=== PATIENT | male | born 1985 | race Caucasian/White ===

== ENCOUNTER 2020-05-15 16:38 | Observation (INO) | payer SELFPAY ==
[~2020-05-15] VITALS: Ht 170.2 cm; Wt 78.1 kg
[2020-05-15 17:13] LABS: BASOPHILS # (AUTO) 0.1 10^3/uL (0.0-0.1); BASOPHILS % (AUTO) 0 % (0-10); EOSINOPHILS # (AUTO) 0.1 10^3/uL (0.0-0.3); EOSINOPHILS % (AUTO) 1 % (0-10); HEMATOCRIT 36 % (40-54); HEMOGLOBIN 12.6 G/DL (13.3-17.7); LYMPHOCYTES # (AUTO) 2.3 X 10^3 (1.0-4.0); LYMPHOCYTES % (AUTO) 20 % (12-44); MEAN CORPUSCULAR HEMOGLOBIN 33 PG (25-34); MEAN CORPUSCULAR HGB CONC 36 G/DL (32-36); MEAN CORPUSCULAR VOLUME 92 FL (80-99); MEAN PLATELET VOLUME 9.4 FL (7.4-10.4); MONOCYTES # (AUTO) 1.8 X 10^3 (0.0-1.0); MONOCYTES % (AUTO) 15 % (0-12); NEUTROPHILS # (AUTO) 7.4 X 10^3 (1.8-7.8); NEUTROPHILS % (AUTO) 63 % (42-75); PLATELET COUNT 255 10^3/uL (130-400); WHITE BLOOD COUNT 11.7 10^3/uL (4.3-11.0)
[2020-05-15 17:28] LABS: INR 1.9 (0.8-1.4)
[2020-05-15 17:36] LABS: ALANINE AMINOTRANSFERASE 15 U/L (0-55); ALBUMIN 2.5 GM/DL (3.2-4.5); ALKALINE PHOSPHATASE 94 U/L (40-136); AMYLASE 61 U/L (25-125); BILIRUBIN,TOTAL 4.8 MG/DL (0.1-1.0); BUN/CREATININE RATIO 6; CALCIUM 7.9 MG/DL (8.5-10.1); CARBON DIOXIDE 24 MMOL/L (21-32); CHLORIDE 96 MMOL/L (98-107); GFR ESTIMATED > 60; GLUCOSE 121 MG/DL (70-105); LIPASE 21 U/L (8-78); POTASSIUM 3.1 MMOL/L (3.6-5.0); SODIUM 128 MMOL/L (135-145); TOTAL PROTEIN 7.9 GM/DL (6.4-8.2)
--- NOTE | 2020-05-15 17:54 | Diagnostic Imaging Report ---
CLINICAL INDICATION: Patient with abdominal pain, distention, diarrhea x7 to 10 days. EXAM: Axial CT scan of the abdomen and pelvis performed without IV or enteric contrast. Coronal and sagittal reformatted images are created. COMPARISON: None. FINDINGS: There is parenchymal band seen involving both lung bases and basilar middle lobe and lingular regions. These findings may be related to atelectasis. Bones show no significant abnormality. There is a moderate to large amounts of ascites seen within the abdomen and pelvis. There is no gross evidence of peritoneal implants or definite intra-abdominal mass seen. There is small pericardial fluid noted. Intra-abdominal structures are not well delineated due to the ascites. There is no hepatomegaly or splenomegaly seen. The liver, spleen, pancreas, and adrenal glands are unremarkable as visualized. The gallbladder is not visualized and may be obscured by ascites. There is no surgical clips seen in the gallbladder fossa region. Both kidneys are unremarkable with no stones, mass, or hydronephrosis. The bladder is predominantly decompressed with very minimal flow within it. There is no gross abnormality of the bladder, as visualized. There is diffuse bowel wall thickening seen from the anus to the proximal sigmoid colon. There is also some bowel wall thickening in the region of the cecum. The appendix is obscured and not visualized and unable to be evaluated. The terminal ileum is fluid-filled with no gross abnormality. The intestines show no significant abnormality as visualized. Stomach is mildly distended, but otherwise unremarkable. Duodenum is decompressed. There are several mesenteric lymph nodes seen which are nonspecific. There is no other significant abdominal lymphadenopathy. There is no intra-abdominal free air. There is mild anasarca seen around the abdomen and pelvis region. IMPRESSION: 1: There is moderate to large amounts of abdominal ascites of unknown etiology. There are no gross evidence of peritoneal implants. 2: There is diffuse bowel wall thickening seen from the anus to the sigmoid colon. There is also bowel wall thickening of the cecum. Infectious or inflammatory colitis may be considered. 3: The appendix is not visualized and cannot be evaluated. 4: There is limited visualization of the intra-abdominal structures due to the amount of ascites. 5: Bibasilar atelectasis. Dictated by: Dictated on workstation # [id number]
[2020-05-15 18:04] LABS: CLARITY,URINE CLEAR; COLOR,URINE ORANGE; GLUCOSE, URINE (UA) NEGATIVE (NEGATIVE); KETONES,URINE TRACE (NEGATIVE); LEUKOCYTE ESTERASE ,URINE NEGATIVE (NEGATIVE); NITRITE,URINE NEGATIVE (NEGATIVE); PH,URINE 6.5 (5-9); PROTEIN,URINE TRACE (NEGATIVE)
[2020-05-15] MEDS ORDERED: NS IV 1000 ML 1,000 ML IV SCH (18:05)
[2020-05-15] MEDS ORDERED: KCL 10 MEQ TAB (MICRO K) PO STA (18:05)
[2020-05-15 18:07] LABS: BACTERIA,URINE TRACE /HPF; BILIRUBIN,URINE 2+ (NEGATIVE); HYALINE CASTS, URINE >50 /LPF; SQUAMOUS EPITHELIAL CELL,UR RARE /HPF
--- NOTE | 2020-05-15 18:10 | ED GI ---
General Chief Complaint: Abdominal/GI Problems Stated Complaint: ABD DISTENTION Nursing Triage Note: patient states last 7 days, abdomen getting worse, denies pain. Sepsis Screen: No Definite Risk History of Present Illness Date Seen by Provider: May 15, 2020 Time Seen by Provider: 17:15 Initial Comments 35 year old male presents for ascites, progressing over the last 7 days. No history of liver disease, reports drinking 3-4 alcoholic beverages (beer or whisky) until 3 months ago, when he quit. No previous abdominal surgeries. No primary care provider. Denies taking any medications. Mild nausea and diarrhea for 2-3 days. No travel. Denies jaundice, but scleral icterus noted. Timing/Duration: 6-7 Days Severity/Quality: Mild Associated Symptoms: No Back Pain, No Chest Pain, No Diaphoresis, No Heartburn; Nausea/Vomiting; No Shortness of Air; Swelling/Mass in Abdomen; No Weakness Allergies and Home Medications Allergies Coded Allergies: No Known Drug Allergies (Unverified , 05/15/20) Patient Home Medication List Home Medication List Reviewed: Yes Review of Systems Review of Systems Constitutional: no symptoms reported Gastrointestinal: See HPI, Abdomen Distended, Diarrhea, Nausea Skin: see HPI, change in color; No pruritus, No rash All Other Systems Reviewed Negative Unless Noted: Yes Past Pyreusg-Mcxjkl-Ibhrqn Hx Past Med/Social Hx: Reviewed Nursing Past Med/Soc Hx Patient Social History Alcohol Use: Past History Alcohol Beverage of Choice: Beer, Whiskey Recent Foreign Travel: No Contact w/Someone Who Travel: No Recent Infectious Disease Expo: No Physical Abuse: No Sexual Abuse: No Mistreated: No Fear: No Physical Exam Vital Signs Vital Signs - First Documented 05/15/20 17:08 Temp 36.9 Pulse 117 Resp 20 B/P (MAP) 139/99 (112) Pulse Ox 93 O2 Delivery Room Air Capillary Refill : Less Than 3 Seconds Height/Weight/BMI Height: '" Weight: lbs. oz. kg; 22.00 BMI Method: General Appearance: WD/WN, no apparent distress HEENT: normal ENT inspection, TMs normal, pharynx normal, scleral icterus (R), scleral icterus (L) Neck: non-tender, full range of motion, supple, normal inspection Respiratory: chest non-tender, lungs clear, normal breath sounds Cardiovascular: normal peripheral pulses, regular rate, rhythm, no edema, no murmur Gastrointestinal: normal bowel sounds, non tender, soft, distended; No guarding, No rebound, No tenderness, No mass Extremities: normal range of motion, non-tender, normal inspection, no pedal edema, normal capillary refill Neurologic/Psychiatric: no motor/sensory deficits, alert, normal mood/affect, oriented x 3 Skin: warm/dry, jaundice Progress/Results/Core Measures Results/Orders Lab Results Laboratory Tests Test 05/15/20 17:06 05/15/20 17:50 Range/Units White Blood Count 11.7 H 4.3-11.0 10^3/uL Red Blood Count 3.86 L 4.35-5.85 10^6/uL Hemoglobin 12.6 L 13.3-17.7 G/DL Hematocrit 36 L 40-54 % Mean Corpuscular Volume 92 80-99 FL Mean Corpuscular Hemoglobin 33 25-34 PG Mean Corpuscular Hemoglobin Concent 36 32-36 G/DL Red Cell Distribution Width 12.9 10.0-14.5 % Platelet Count 255 130-400 10^3/uL Mean Platelet Volume 9.4 7.4-10.4 FL Neutrophils (%) (Auto) 63 42-75 % Lymphocytes (%) (Auto) 20 12-44 % Monocytes (%) (Auto) 15 H 0-12 % Eosinophils (%) (Auto) 1 0-10 % Basophils (%) (Auto) 0 0-10 % Neutrophils # (Auto) 7.4 1.8-7.8 X 10^3 Lymphocytes # (Auto) 2.3 1.0-4.0 X 10^3 Monocytes # (Auto) 1.8 H 0.0-1.0 X 10^3 Eosinophils # (Auto) 0.1 0.0-0.3 10^3/uL Basophils # (Auto) 0.1 0.0-0.1 10^3/uL Prothrombin Time 22.0 H 12.2-14.7 SEC INR Comment 1.9 H 0.8-1.4 Activated Partial Thromboplast Time 43 H 24-35 SEC Sodium Level 128 L 135-145 MMOL/L Potassium Level 3.1 L 3.6-5.0 MMOL/L Chloride Level 96 L 98-107 MMOL/L Carbon Dioxide Level 24 21-32 MMOL/L Anion Gap 8 5-14 MMOL/L Blood Urea Nitrogen 4 L 7-18 MG/DL Creatinine 0.70 0.60-1.30 MG/DL Estimat Glomerular Filtration Rate > 60 BUN/Creatinine Ratio 6 Glucose Level 121 H 70-105 MG/DL Calcium Level 7.9 L 8.5-10.1 MG/DL Corrected Calcium 9.1 8.5-10.1 MG/DL Total Bilirubin 4.8 H 0.1-1.0 MG/DL Aspartate Amino Transf (AST/SGOT) 49 H 5-34 U/L Alanine Aminotransferase (ALT/SGPT) 15 0-55 U/L Alkaline Phosphatase 94 40-136 U/L C-Reactive Protein High Sensitivity 2.66 H 0.00-0.50 MG/DL Total Protein 7.9 6.4-8.2 GM/DL Albumin 2.5 L 3.2-4.5 GM/DL Amylase Level 61 25-125 U/L Lipase 21 8-78 U/L Urine Color ORANGE Urine Clarity CLEAR Urine pH 6.5 5-9 Urine Specific [place] 1.010 L 1.016-1.022 Urine Protein TRACE H NEGATIVE Urine Glucose (UA) NEGATIVE NEGATIVE Urine Ketones TRACE H NEGATIVE Urine Nitrite NEGATIVE NEGATIVE Urine Bilirubin 2+ H NEGATIVE Urine Urobilinogen 0.2 < = 1.0 MG/DL Urine Leukocyte Esterase NEGATIVE NEGATIVE Urine RBC (Auto) NEGATIVE NEGATIVE Urine RBC NONE /HPF Urine WBC 10-25 H /HPF Urine Squamous Epithelial Cells RARE /HPF Urine Crystals NONE /LPF Urine Bacteria TRACE /HPF Urine Casts PRESENT /LPF Urine Hyaline Casts >50 H /LPF Urine Mucus NEGATIVE /LPF Urine Culture Indicated YES My Orders Orders - HALEY ALONSO Amylase (05/15/20 16:44) Cbc With Automated Diff (05/15/20 16:44) Comprehensive Metabolic Panel (05/15/20 16:44) Hs C Reactive Protein (05/15/20 16:44) Lipase (05/15/20 16:44) Protime With Inr (05/15/20 16:44) Partial Thromboplastin Time (05/15/20 16:44) Ua Culture If Indicated (05/15/20 16:44) Ct Abdomen/Pelvis Wo (05/15/20 16:44) Ed Iv/Invasive Line Start (05/15/20 18:05) Ns Iv 1000 Ml (Sodium Chloride 0.9%) (05/15/20 18:05) Potassium Chloride (Tablet) (Klor Con Ta (05/15/20 18:05) Urine Culture (05/15/20 17:50) Vital Signs/I&O 05/15/20 17:08 Temp 36.9 Pulse 117 Resp 20 B/P (MAP) 139/99 (112) Pulse Ox 93 O2 Delivery Room Air Blood Pressure Mean: 112 Progress Progress Note : Time: 17:15 Progress Note Patient seen and evaluated, will obtain labs and CT of the abdomen and pelvis. 1800 normal saline 1 L per IV. Will give potassium [address] and labs, discussed with Dr. Liu and Dr. Scott. Agreed to admit with plan for paracentesis tomorrow. Will repeat labs in the morning. Rocephin 2 g IV. 1845 plans discussed with the patient, he is agreeable. Diagnostic Imaging Diagonstic Imaging: CT Plain Films/CT/US/NM/MRI: abdomen, pelvis Comments CLINICAL INDICATION: Patient with abdominal pain, distention, diarrhea x7 to 10 days. EXAM: Axial CT scan of the abdomen and pelvis performed without IV or enteric contrast. Coronal and sagittal reformatted images are created. COMPARISON: None. FINDINGS: There is parenchymal band seen involving both lung bases and basilar middle lobe and lingular regions. These findings may be related to atelectasis. Bones show no significant abnormality. There is a moderate to large amounts of ascites seen within the abdomen and pelvis. There is no gross evidence of peritoneal implants or definite intra-abdominal mass seen. There is small pericardial fluid noted. Intra-abdominal structures are not well delineated due to the ascites. There is no hepatomegaly or splenomegaly seen. The liver, spleen, pancreas, and adrenal glands are unremarkable as visualized. The gallbladder is not visualized and may be obscured by ascites. There is no surgical clips seen in the gallbladder fossa region. Both kidneys are unremarkable with no stones, mass, or hydronephrosis. The bladder is predominantly decompressed with very minimal flow within it. There is no gross abnormality of the bladder, as visualized. There is diffuse bowel wall thickening seen from the anus to the proximal sigmoid colon. There is also some bowel wall thickening in the region of the cecum. The appendix is obscured and not visualized and unable to be evaluated. The terminal ileum is fluid-filled with no gross abnormality. The intestines show no significant abnormality as visualized. Stomach is mildly distended, but otherwise unremarkable. Duodenum is decompressed. There are several mesenteric lymph nodes seen which are nonspecific. There is no other significant abdominal lymphadenopathy. There is no intra-abdominal free air. There is mild anasarca seen around the abdomen and pelvis region. IMPRESSION: 1: There is moderate to large amounts of abdominal ascites of unknown etiology. There are no gross evidence of peritoneal implants. 2: There is diffuse bowel wall thickening seen from the anus to the sigmoid colon. There is also bowel wall thickening of the cecum. Infectious or inflammatory colitis may be considered. 3: The appendix is not visualized and cannot be evaluated. 4: There is limited visualization of the intra-abdominal structures due to the amount of ascites. 5: Bibasilar atelectasis. Dictated on workstation # [id number] Dict: 05/15/20 1739 Trans: 05/15/20 1753 [facility] [id number] Interpreted by: KARIE CRUZ MD Electronically signed by: Reviewed: Reviewed by Me Departure Impression Primary Impression: Ascites Qualified Codes: R18.8 - Other ascites Additional Impressions: Abdominal distention Colitis Jaundice Disposition: ADMITTED INPATIENT Condition: Stable Admissions Decision to Admit Reason: Admit from ER (General) Decision to Admit/Date: May 15, 2020 Time/Decision to Admit Time: 18:30 Departure-Patient Inst. Referrals: NO,LOCAL PHYSICIAN (PCP) Primary Care Physician CATHY TIPTON DO (Family) Primary Care Physician Copy Copies To 1: MICAH LIU AMY ARNP May 15, 2020 18:10
--- NOTE | 2020-05-15 20:05 | NUR ---
LINDA CALL admitted to room 413-1, with an admitting diagnosis of ABDOMINAL PAIN, ASCITES, AND JAUNDICE, on 05/15/20 from ED via WHEELCHAIR, accompanied by STAFF. LINDA CALL introduced to surroundings, call light, bed controls, phone, TV, temperature control, lights, meal times, smoking policy, visitor policy, side rail policy, bathrooms and showers. Patient Rights given to patient in the handbook. LINDA CALL verbalizes understanding that [facility] is not responsible for the loss or damage to any personal effects or valuables that are kept in the patients posession during their hospitalization. LINDA CALL verbalizes understanding of Interdisciplinary Patient Education. Patient and/or family were informed about the Rapid Response Team and its purpose.
[2020-05-15] MEDS ORDERED: cefTRIAXone 2,000 MG/SWFI 20 ML IV PUSH IV SCH ×2 (20:19)
[2020-05-15] MEDS ORDERED: fentaNYL INJECTION 100 MCG/2 ML AMP IV PRN (20:30)
[2020-05-15] MEDS ORDERED: ONDANSETRON 4 MG/2 ML (SDV) Z0FRAN IV PRN (20:30)
[2020-05-15] MEDS ORDERED: ACETAMINOPHEN 325 MG TABLET PO PRN (20:30)
[2020-05-15] MEDS ORDERED: CATHETER FLUSH 10 ML SYR IV PRN (20:30)
[2020-05-15] MEDS: NS IV 1000 ML 1,000 ML IV SCH (20:37)
[2020-05-15 21:42] VITALS: BP 133/85
--- NOTE | 2020-05-15 23:25 | NUR ---
DR. LIU IN TO SEE PT.
--- NOTE | 2020-05-15 23:37 | Consultation - Surgery ---
History of Present Illness History of Present Illness Patient Consulted On(sara/time) 05/15/20 23:31 Date Seen by Provider: May 15, 2020 Time Seen by Provider: 23:31 History of Present Illness Consult requested by Dr. Scott for ascites, colitis Patient is a 35 year old male who over last 7 days had increasing abdominal distention. No significant pain. Continued to increase in size and began having some nausea. Nothing makes better. Nothing he k nows of makes worse. Having some diarrhea last couple days. Reported history of drinking 3-4 drinks per day but stopped. Uses an tobacco. Denies any other complaints. Denies fever sweats chills shortness of breath or emesis. CT abd/pelvis: 1: There is moderate to large amounts of abdominal ascites of unknown etiology. There are no gross evidence of peritoneal implants. 2: There is diffuse bowel wall thickening seen from the anus to the sigmoid colon. There is also bowel wall thickening of the cecum. Infectious or inflammatory colitis may be considered. 3: The appendix is not visualized and cannot be evaluated. 4: There is limited visualization of the intra-abdominal structures due to the amount of ascites. 5: Bibasilar atelectasis. Allergies and Home Medications Allergies Coded Allergies: No Known Drug Allergies (Unverified , 05/15/20) Patient Home Medication List Home Medication List Reviewed: Yes Past Owzsrzc-Ehdhkz-Jfkjfb Hx Patient Social History Alcohol Use: Past History Type Used: Smokeless Tobacco Recent Foreign Travel: No Contact w/Someone Who Travel: No Recent Infectious Disease Expo: No Immunizations Up To Date Date of Pneumonia Vaccine: Apr 25, 2014 Surgeries History of Surgeries: Yes Surgeries: Appendectomy Respiratory History of Respiratory Disorde: No Cardiovascular History of Cardiac Disorders: No Neurological History of Neurological Disord: No Genitourinary History of Genitourinary Disor: No Gastrointestinal History of Gastrointestinal Di: No Musculoskeletal History of Musculoskeletal Dis: No Endocrine History of Endocrine Disorders: No HEENT History of HEENT Disorders: No Cancer History of Cancer: No Psychosocial History of Psychiatric Problem: No Integumentary History of Skin or Integumenta: No Blood Transfusions History of Blood Disorders: No Family Medical History Significant Family History: No Pertinent Family Hx Review of Systems-General Constitutional: No chills, No fever, No weakness EENTM: No blurred vision, No double vision Respiratory: No cough, No dyspnea on exertion Cardiovascular: No chest pain, No edema Gastrointestinal: jaundice, nausea; No vomiting; other (distention) Genitourinary: No decreased output, No discharge Musculoskeletal: No back pain, No joint pain Skin: change in color Psychiatric/Neurological: Denies Anxiety, Denies Depressed All Other Systems Reviewed Negative Unless Noted: Yes (Negative excepted noted.) Physical Exam-General Problems Physical Exam Vital Signs Vital Signs - First Documented 05/15/20 17:08 Temp 36.9 Pulse 117 Resp 20 B/P (MAP) 139/99 (112) Pulse Ox 93 O2 Delivery Room Air Capillary Refill : Less Than 3 Seconds General Appearance: WD/WN, no apparent distress HEENT: PERRL/EOMI, scleral icterus (R), scleral icterus (L) Neck: non-tender, supple Respiratory: chest non-tender, no respiratory distress, no accessory muscle use Cardiovascular: regular rate, rhythm, no edema Gastrointestinal: distended; No guarding, No tenderness Rectal: deferred Back: no CVA tenderness, no vertebral tenderness Extremities: non-tender, normal inspection Neurologic/Psychiatric: alert, normal mood/affect, oriented x 3 Skin: warm/dry, jaundice Lymphatic: no adenopathy Data Review Labs Laboratory Tests 05/15/20 17:06: White Blood Count 11.7H, Red Blood Count 3.86L, Hemoglobin 12.6L, Hematocrit 36L , Mean Corpuscular Volume 92, Mean Corpuscular Hemoglobin 33, Mean Corpuscular Hemoglobin Concent 36, Red Cell Distribution Width 12.9, Platelet Count 255, Mean Platelet Volume 9.4, Neutrophils (%) (Auto) 63, Lymphocytes (%) (Auto) 20, Monocytes (%) (Auto) 15H, Eosinophils (%) (Auto) 1, Basophils (%) (Auto) 0, Neutrophils # (Auto) 7.4, Lymphocytes # (Auto) 2.3, Monocytes # (Auto) 1.8H, Eosinophils # (Auto) 0.1, Basophils # (Auto) 0.1, Prothrombin Time 22.0H, INR Comment 1.9H, Activated Partial Thromboplast Time 43H, Sodium Level 128L, Potassium Level 3.1L, Chloride Level 96L, Carbon Dioxide Level 24, Anion Gap 8, Blood Urea Nitrogen 4L, Creatinine 0.70, Estimat Glomerular Filtration Rate > 60, BUN/Creatinine Ratio 6, Glucose Level 121H, Calcium Level 7.9L, Corrected Calcium 9.1, Total Bilirubin 4.8H, Direct Bilirubin 2.0H, Aspartate Amino Transf (AST/SGOT) 49H, Alanine Aminotransferase (ALT/SGPT) 15, Alkaline Phosphatase 94, C-Reactive Protein High Sensitivity 2.66H, Total Protein 7.9, Albumin 2.5L, Amylase Level 61, Lipase 21, Serum Alcohol < 10 05/15/20 17:50: Urine Color ORANGE, Urine Clarity CLEAR, Urine pH 6.5, Urine Specific [place] 1.010L, Urine Protein TRACEH, Urine Glucose (UA) NEGATIVE, Urine Ketones TRACEH, Urine Nitrite NEGATIVE, Urine Bilirubin 2+H, Urine Urobilinogen 0.2, Urine Leukocyte Esterase NEGATIVE, Urine RBC (Auto) NEGATIVE, Urine RBC NONE, Urine WBC 10-25H, Urine Squamous Epithelial Cells RARE, Urine Crystals NONE, Urine Bacteria TRACE, Urine Casts PRESENT, Urine Hyaline Casts >50H, Urine Mucus NEGATIVE, Urine Culture Indicated YES Assessment/Plan Assessment/Plan Assessment/Plan symptomatic ascites jaundice colitis Patient with ct that shows some thickening of the sigmoid/rectal distribution. On abx Large volume ascites which we will plan on draining likely tomorrow. Will recheck labs. Patient discussed and understands plan. will follow Clinical Quality Measures DVT/VTE Risk/Contraindication: Risk Factor Score Per Nursin RFS Level Per Nursing on Admit: 1=Low/No VTE PPX MICAH LIU DO May 15, 2020 23:37
[2020-05-16] VITALS (9 sets, daily range): BP systolic 110–138; BP diastolic 70–85
[2020-05-16] MEDS: NS IV 1000 ML 1,000 ML IV SCH ×2 (03:36→17:11)
[2020-05-16 06:24] LABS: BASOPHILS % (AUTO) 0 % (0-10); EOSINOPHILS # (AUTO) 0.1 10^3/uL (0.0-0.3); EOSINOPHILS % (AUTO) 1 % (0-10); HEMATOCRIT 32 % (40-54); HEMOGLOBIN 11.5 G/DL (13.3-17.7); LYMPHOCYTES # (AUTO) 2.2 X 10^3 (1.0-4.0); LYMPHOCYTES % (AUTO) 20 % (12-44); MEAN CORPUSCULAR HEMOGLOBIN 33 PG (25-34); MEAN CORPUSCULAR HGB CONC 36 G/DL (32-36); MEAN CORPUSCULAR VOLUME 92 FL (80-99); MEAN PLATELET VOLUME 9.8 FL (7.4-10.4); MONOCYTES # (AUTO) 1.4 X 10^3 (0.0-1.0); MONOCYTES % (AUTO) 12 % (0-12); NEUTROPHILS # (AUTO) 7.6 X 10^3 (1.8-7.8); NEUTROPHILS % (AUTO) 67 % (42-75); PLATELET COUNT 227 10^3/uL (130-400); WHITE BLOOD COUNT 11.4 10^3/uL (4.3-11.0)
[2020-05-16 06:34] LABS: INR 1.9 (0.8-1.4); PROTHROMBIN TIME PATIENT 22.4 SEC (12.2-14.7)
[2020-05-16 06:48] LABS: ALANINE AMINOTRANSFERASE 14 U/L (0-55); ALBUMIN 2.2 GM/DL (3.2-4.5); ALKALINE PHOSPHATASE 81 U/L (40-136); BILIRUBIN,TOTAL 2.6 MG/DL (0.1-1.0); BUN/CREATININE RATIO 5; CALCIUM 7.5 MG/DL (8.5-10.1); CARBON DIOXIDE 24 MMOL/L (21-32); CHLORIDE 101 MMOL/L (98-107); CREATININE SERUM 0.65 MG/DL (0.60-1.30); GFR ESTIMATED > 60; GLUCOSE 94 MG/DL (70-105); POTASSIUM 2.9 MMOL/L (3.6-5.0); SODIUM 132 MMOL/L (135-145); TOTAL PROTEIN 6.8 GM/DL (6.4-8.2)
--- NOTE | 2020-05-16 07:53 | Progress Note - Surgery ---
REUBEN LEVIN MED STUDENT 05/16/20 0753: Subjective Date Seen by a Provider: May 16, 2020 Time Seen by a Provider: 07:25 Subjective/Events-last exam Pt appeared comfortable and sitting up in bed. Reports he is feeling better than yesterday. Abdomen still distended. Claims to be passing gas and experiencing normal bowel function. Denies nausea, vomiting, fever, chills, sob, chest pain, dysphagia. Objective Exam Vital Signs Date Time Temp Pulse Resp B/P (MAP) Pulse Ox O2 Delivery O2 Flow Rate FiO2 05/16/20 04:00 37.1 103 18 125/83 (97) 95 Room Air 05/16/20 00:00 37.5 110 18 124/75 (91) 95 Room Air 05/15/20 21:42 36.5 107 20 133/85 93 Room Air 05/15/20 20:05 Room Air 05/15/20 20:03 110 18 141/97 95 Room Air 05/15/20 17:08 36.9 117 20 139/99 (112) 93 Room Air I & O 05/16/20 07:00 Intake Total 2870 ml Balance 2870 ml Capillary Refill : Less Than 3 Seconds General Appearance: No Apparent Distress, Chronically ill HEENT: PERRL/EOMI, Normal ENT Inspection Neck: Full Range of Motion, Normal Inspection, Non Tender, Supple Respiratory: Chest Non Tender, No Accessory Muscle Use, No Respiratory Distress Cardiovascular: Regular Rate, Rhythm, No JVD Gastrointestinal: non tender, distended; No guarding, No tenderness Extremity: Normal Inspection, Non Tender Neurologic/Psychiatric: Alert, Oriented x3, No Motor/Sensory Deficits, Normal Mood/Affect Skin: Normal Color, Warm/Dry Results Lab Laboratory Tests 05/15/20 17:06: White Blood Count 11.7H, Red Blood Count 3.86L, Hemoglobin 12.6L, Hematocrit 36L , Mean Corpuscular Volume 92, Mean Corpuscular Hemoglobin 33, Mean Corpuscular Hemoglobin Concent 36, Red Cell Distribution Width 12.9, Platelet Count 255, Mean Platelet Volume 9.4, Neutrophils (%) (Auto) 63, Lymphocytes (%) (Auto) 20, Monocytes (%) (Auto) 15H, Eosinophils (%) (Auto) 1, Basophils (%) (Auto) 0, Neutrophils # (Auto) 7.4, Lymphocytes # (Auto) 2.3, Monocytes # (Auto) 1.8H, Eosinophils # (Auto) 0.1, Basophils # (Auto) 0.1, Prothrombin Time 22.0H, INR Comment 1.9H, Activated Partial Thromboplast Time 43H, Sodium Level 128L, Potassium Level 3.1L, Chloride Level 96L, Carbon Dioxide Level 24, Anion Gap 8, Blood Urea Nitrogen 4L, Creatinine 0.70, Estimat Glomerular Filtration Rate > 60, BUN/Creatinine Ratio 6, Glucose Level 121H, Calcium Level 7.9L, Corrected Calcium 9.1, Total Bilirubin 4.8H, Direct Bilirubin 2.0H, Aspartate Amino Transf (AST/SGOT) 49H, Alanine Aminotransferase (ALT/SGPT) 15, Alkaline Phosphatase 94, C-Reactive Protein High Sensitivity 2.66H, Total Protein 7.9, Albumin 2.5L, Amylase Level 61, Lipase 21, Serum Alcohol < 10 05/15/20 17:50: Urine Color ORANGE, Urine Clarity CLEAR, Urine pH 6.5, Urine Specific [place] 1.010L, Urine Protein TRACEH, Urine Glucose (UA) NEGATIVE, Urine Ketones TRACEH, Urine Nitrite NEGATIVE, Urine Bilirubin 2+H, Urine Urobilinogen 0.2, Urine Leukocyte Esterase NEGATIVE, Urine RBC (Auto) NEGATIVE, Urine RBC NONE, Urine WBC 10-25H, Urine Squamous Epithelial Cells RARE, Urine Crystals NONE, Urine Bacteria TRACE, Urine Casts PRESENT, Urine Hyaline Casts >50H, Urine Mucus NEGATIVE, Urine Culture Indicated YES 05/16/20 05:55: White Blood Count 11.4H, Red Blood Count 3.51L, Hemoglobin 11.5L, Hematocrit 32L , Mean Corpuscular Volume 92, Mean Corpuscular Hemoglobin 33, Mean Corpuscular Hemoglobin Concent 36, Red Cell Distribution Width 13.0, Platelet Count 227, Mean Platelet Volume 9.8, Neutrophils (%) (Auto) 67, Lymphocytes (%) (Auto) 20, Monocytes (%) (Auto) 12, Eosinophils (%) (Auto) 1, Basophils (%) (Auto) 0, Neutrophils # (Auto) 7.6, Lymphocytes # (Auto) 2.2, Monocytes # (Auto) 1.4H, Eosinophils # (Auto) 0.1, Basophils # (Auto) 0.0, Prothrombin Time 22.4H, INR Comment 1.9H, Sodium Level 132L, Potassium Level 2.9L, Chloride Level 101, Carbon Dioxide Level 24, Anion Gap 7, Blood Urea Nitrogen 3L, Creatinine 0.65, Estimat Glomerular Filtration Rate > 60, BUN/Creatinine Ratio 5, Glucose Level 94, Calcium Level 7.5L, Corrected Calcium 8.9, Total Bilirubin 2.6#H, Aspartate Amino Transf (AST/SGOT) 46H, Alanine Aminotransferase (ALT/SGPT) 14, Alkaline Phosphatase 81, Total Protein 6.8, Albumin 2.2L Assessment/Plan Assessment/Plan Assessment/Plan symptomatic ascites jaundice colitis continue abx drain ascites today repeat CT Clinical Quality Measures DVT/VTE Risk/Contraindication: Risk Factor Score Per Nursin RFS Level Per Nursing on Admit: 1=Low/No VTE PPX MICAH COBB DO 05/16/20 1646: Subjective Subjective/Events-last exam Abdomen very distended still. Some discomfort due to distention but no significant pain. Has bowel function. Denies n/v fever sweats chills shortness of breath or chest pain. Objective Exam General Appearance: No Apparent Distress, Chronically ill HEENT: PERRL/EOMI, Normal ENT Inspection, Scleral Icterus (L), Scleral Icterus (R) Neck: Non Tender, Supple Respiratory: Chest Non Tender, No Accessory Muscle Use, No Respiratory Distress Cardiovascular: Regular Rate, Rhythm, No Edema, No JVD Gastrointestinal: non tender (but pressure), distended; No guarding, No rebound; other Extremity: Normal Inspection, Non Tender Neurologic/Psychiatric: Alert, Oriented x3 Skin: Normal Color, Warm/Dry, Jaundice Lymphatic: No Adenopathy Assessment/Plan Assessment/Plan Assessment/Plan symptomatic ascites jaundice colitis patient inr still slightly elevated will plan ffp to lower then paracentesis u/s guided he understands risks and benefits of paracentesis and wishes to proceed obtain consent will need f/u with GI Supervisory-Addendum Brief Verification & Attestation Participated in pt care: history, MDM, physical Personally performed: exam, history, MDM, supervision of care Care discussed with: Medical Student Procedures: n/a Results interpretation: Verified all documentation Verification and Attestation of Medical Student E/M Service A medical student performed and documented this service in my presence. I reviewed and verified all information documented by the medical student and made modifications to such information, when appropriate. I personally performed the physical exam and medical decision making. Micah Cobb, May 16, 2020,16:46 REUBEN LEVIN MED STUDENT May 16, 2020 07:53 MICAH COBB DO May 16, 2020 16:46
[2020-05-16] MEDS ORDERED: ALBUMIN 25% 25 GM/100 ML 100 ML IV SCH (08:00)
[2020-05-16] MEDS ORDERED: KCL 20 MEQ TAB (K-DUR) PO ONE ×3 (09:00→11:45)
[2020-05-16] MEDS ORDERED: FUROSEMIDE 20 MG (LASIX) TAB PO SCH (09:00)
[2020-05-16] MEDS ORDERED: SPIRONOLACTONE 25 MG (ALDACTONE) TAB PO SCH (09:00)
[2020-05-16] MEDS ORDERED: NS IV 500 ML 500 ML IV SCH (10:45)
[2020-05-16] MEDS ORDERED: NS IV 500 ML 500 ML ONE (12:48)
--- NOTE | 2020-05-16 13:28 | NUR ---
fresh frozen plasma infusing at this time. 1305 this RN received plasma from hazardous materials waste technician and verified 1310 this RN attempted to scan plasma product code. product code would not allow this RN to scan at this time. semiconductor testing group leader notified and instructed this RN to contact blood bank. blood bank contacted and instructed this RN to bring product back to lab to reverify. [id number] product reverified with blood bank[facility] the product code should not have to be scanned. this RN stated we always scan the product bar code on the floor. blood bank verified product code in the computer and of frozen products in the freezer currently. all codes match current sample issued to this RN. this RN was instructed by blood bank to override product verification in the computer and have a second RN reverify on the floor. 1328 PLASMA STATED AT THIS TIME WITH TORRES JIMENEZ
--- NOTE | 2020-05-16 17:24 | NUR ---
6,800ML total emptied from Paracentesis drain. fluid labeled and sent to lab at this time. notified of total fluid emptied. patient to DC this evening when Albumin is finished infusing
[2020-05-16] MEDS ORDERED: ALBUMIN 25% 25 GM/100 ML 100 ML IV ONE ×2 (17:45→18:34)
--- NOTE | 2020-05-16 17:45 | NUR ---
2nd bag of Albumin 25% ordered at this time by Dr. Scott. Patient okay to DC when albumin is finished infusing
--- NOTE | 2020-05-16 17:49 | Discharge Summary ---
Discharge Summary Hospital Course Problems/Dx: (1) Ascites Status: Acute Hospital Course Date of Admission: May 15, 2020 at 18:45 Admission Diagnosis : Ascites Family Physician/Provider: Eren Leone DO Date of Discharge: 05/16/20 Discharge Diagnosis: Ascites Hospital Course: Lynn Anderson is a 35 year old male who presented with abdominal distension and was admitted with ascites. He underwent a paracentesis and peritoneal fluid studies were pending at the time of discharge. He had 6800 mL of peritoneal fluid removed. He remained hemodynamically stable and afebrile with no signs of acute infection. He was set up with an appointment at [facility] to establish care with a primary care physician. He is uninsured and will likely need a referral to a cafeteria director. Labs and Pending Lab Test: Laboratory Tests 05/15/20 17:50: Urine Color ORANGE, Urine Clarity CLEAR, Urine pH 6.5, Urine Specific [place] 1.010L, Urine Protein TRACEH, Urine Glucose (UA) NEGATIVE, Urine Ketones TRACEH, Urine Nitrite NEGATIVE, Urine Bilirubin 2+H, Urine Urobilinogen 0.2, Urine Leukocyte Esterase NEGATIVE, Urine RBC (Auto) NEGATIVE, Urine RBC NONE, Urine WBC 10-25H, Urine Squamous Epithelial Cells RARE, Urine Crystals NONE, Urine Bacteria TRACE, Urine Casts PRESENT, Urine Hyaline Casts >50H, Urine Mucus NEGATIVE, Urine Culture Indicated YES 05/16/20 05:55: White Blood Count 11.4H, Red Blood Count 3.51L, Hemoglobin 11.5L, Hematocrit 32L , Mean Corpuscular Volume 92, Mean Corpuscular Hemoglobin 33, Mean Corpuscular Hemoglobin Concent 36, Red Cell Distribution Width 13.0, Platelet Count 227, Mean Platelet Volume 9.8, Neutrophils (%) (Auto) 67, Lymphocytes (%) (Auto) 20, Monocytes (%) (Auto) 12, Eosinophils (%) (Auto) 1, Basophils (%) (Auto) 0, Neutrophils # (Auto) 7.6, Lymphocytes # (Auto) 2.2, Monocytes # (Auto) 1.4H, Eosinophils # (Auto) 0.1, Basophils # (Auto) 0.0, Prothrombin Time 22.4H, INR Comment 1.9H, Sodium Level 132L, Potassium Level 2.9L, Chloride Level 101, Carbon Dioxide Level 24, Anion Gap 7, Blood Urea Nitrogen 3L, Creatinine 0.65, Estimat Glomerular Filtration Rate > 60, BUN/Creatinine Ratio 5, Glucose Level 94, Calcium Level 7.5L, Corrected Calcium 8.9, Magnesium Level 1.7, Total Bilirubin 2.6#H, Aspartate Amino Transf (AST/SGOT) 46H, Alanine Aminotransferase (ALT/SGPT) 14, Alkaline Phosphatase 81, Total Protein 6.8, Albumin 2.2L 05/16/20 10:54: Lactate Dehydrogenase 267H 05/16/20 15:35: Body Fluid Source [Pending], Body Fluid Color [Pending], Body Fluid Appearance [Pending], Body Fluid WBC [Pending], Body Fluid RBC [Pending], Body Fluid Polynuclear WBCs [Pending], Body Fluid Mononuclear WBCs [Pending], Body Fluid Lymphocytes [Pending], Body Fluid Other Cells [Pending], Body Fluid Glucose [Pending], Body Fluid Total Protein [Pending], Body Fluid Albumin [Pending], Body Fluid Lactate Dehydrogenase [Pending], Body Fluid Amylase [Pending] 05/16/20 15:55: Potassium Level 3.4L Assessment/Pt Instructions Establish care with a primary care physician. You have an appointment scheduled at [facility]. Return with worsening abdominal distension, difficulty breathing, abdominal pain, or fevers. Discharge Planning: <30 minutes discharge planning Discharge Instructions Discharge Diet: Low Sodium Diet Activity as Tolerated: Yes Discharge Physical Examination Vital Signs Vital Signs Date Time Temp Pulse Resp B/P (MAP) Pulse Ox O2 Delivery O2 Flow Rate FiO2 05/16/20 16:11 37.0 98 118/73 93 05/16/20 16:00 20 Room Air General Appearance: No Apparent Distress, WD/WN HEENT: Pharynx Normal, Scleral Icterus (L), Scleral Icterus (R) Respiratory: Lungs Clear, Normal Breath Sounds, No Respiratory Distress Cardiovascular: Regular Rate, Rhythm, No Murmur Gastrointestinal: Normal Bowel Sounds, Distended, Other (firm) Extremity: Normal Inspection, Non Tender, Pedal Edema Skin: Warm/Dry, Jaundice Neurologic/Psychiatric: Alert, Oriented x3, No Motor/Sensory Deficits, Normal Mood/Affect Allergies: Coded Allergies: No Known Drug Allergies (Unverified , 05/15/20) Copy Copies To 1: [facility] Discharge Summary Date of Admission May 15, 2020 at 18:45 Date of Discharge Discharge Date: May 16, 2020 Discharge Time: 17:47 Admission Diagnosis Ascites Consults/Procedures Consulations General surgery Procedures Paracentesis Discharge Diagnosis (1) Ascites Status: Acute Clinical Quality Measures DVT/VTE Risk/Contraindication: Risk Factor Score Per Nursin RFS Level Per Nursing on Admit: 1=Low/No VTE PPX TOY ANTHONY MD May 16, 2020 17:47
[2020-05-16 18:48] LABS: ALBUMIN,BODY FLUID 0.4 G/DL; GLUCOSE,BODY FLUID 118 MG/DL; LDH,BODY FLUID 66 U/L; TOTAL PROTEIN,BODY FLUID 1.1 G/DL
[2020-05-16 18:49] LABS: AMYLASE,BODY FLUID 15 U/L
[2020-05-16 19:35] LABS: BODY FLUID APPEARENCE SLT CLDY; BODY FLUID COLOR YELLOW; BODY FLUID SOURCE PERITON
[2020-05-16 19:36] LABS: BF OTHER CELLS 1 %; BODY FLUID RBC COUNT 32 /uL; BODY FLUID WBC TOTAL COUNT 379 /uL; LYMPHOCYTES,BODY FLUID 82 %
--- NOTE | 2020-05-16 21:21 | NUR ---
2nd bag of Albumin done. Explained discharge packet to patient including followup to [facility] and Dr. Cobb's clinic. Pt understood. Pt discharged left the floor at 2114 accompanied by staff.
--- NOTE | 2020-05-16 22:04 | OPERATIVE REPORT ---
DATE OF SERVICE: 05/16/2020 PREOPERATIVE DIAGNOSIS: Symptomatic ascites. POSTOPERATIVE DIAGNOSIS: Symptomatic ascites. PROCEDURE: Ultrasound-guided paracentesis. SURGEON: Micah Cobb DO ANESTHESIA: A 1% lidocaine 3 mL. ESTIMATED BLOOD LOSS: None. COMPLICATIONS: None. INDICATIONS: The patient is a 35-year-old male with symptomatic ascites. He understands risks and benefits of procedure and wished to proceed with procedure. Consent was signed in the chart. DESCRIPTION OF PROCEDURE: The patient was laid in the supine position. Timeout was performed. Ultrasound was used to isolate the largest fluid pocket. The area was then prepped and draped in a sterile fashion. Local anesthetic was infiltrated and 11 blade scalpel was used to make a small skin incision and the [id number] needle and catheter were then advanced through the abdominal wall until straw colored fluid was returned and the catheter was inserted and the needle was removed. A total of 6800 mL of fluid was withdrawn from the abdomen. Once completed, the catheter was removed and sterile bandage was applied. The patient tolerated procedure well without any complications. Job ID: [id number] DocumentID: [id number] Dictated Date: 05/16/2020 17:11:17 Filenet Developer Date: 05/16/2020 22:03:36 Dictated By: MICAH COBB DO [facility] HOSPITALDorinda
[2020-05-17] MEDS ORDERED: POTASSIUM CL 10MEQ/50ML IVPB 50 ML IV SCH (06:00)
[2020-05-17] MEDS ORDERED: KCL 20 MEQ TAB (K-DUR) PO SCH (06:00)
[2020-05-17] MEDS ORDERED: MAGNESIUM 1 GM/100 ML IVPB 100 ML IV SCH (06:00)
== END 2020-05-16 21:15 | disposition home or self-care (01) ==
LOC: ER 16:40 → 4TH 18:45 → UNDOADMOB 18:45 → 4TH 20:05 → UNDODISOB 05-16 21:15
PROVIDERS: ADMIT Internal Medicine; ATTEND Internal Medicine
DX: R18.8 Other ascites (principal); R14.0 Abdominal distension (gaseous); K52.9 Noninfective gastroenteritis and colitis, unspecified; R17 Unspecified jaundice
CPT/HCPCS: 74176; 80053 ×2; 81000; 82042; 82150 ×2; 82248; 82945; 83615 ×2; 83690; 83735; 84132; 84157; 85025 ×2; 85610 ×2; 85730; 86141; 86900; 86901; 87070; 87081; 87088; 87205; 88112; 88305; 89051; 96360; 99284; G0378; G0480; P9017; 36415; 80320

== ENCOUNTER 2022-04-28 18:43 | Inpatient (IN) | payer SELFPAY ==
[~2022-04-28] VITALS: Ht 170 cm; Wt 79.9 kg
[2022-04-28 20:56] LABS: CLARITY,URINE CLEAR; COLOR,URINE YELLOW; GLUCOSE, URINE (UA) NEGATIVE (NEGATIVE); KETONES,URINE 2+ (NEGATIVE); LEUKOCYTE ESTERASE ,URINE TRACE (NEGATIVE); NITRITE,URINE POSITIVE (NEGATIVE); PROTEIN,URINE 2+ (NEGATIVE)
[2022-04-28 20:58] LABS: MEAN CORPUSCULAR VOLUME 94 fL (80-99)
[2022-04-28 21:00] LABS: BASOPHILS # (AUTO) 0.1 10^3/uL (0.0-0.1); BASOPHILS % (AUTO) 1 % (0-10); EOSINOPHILS % (AUTO) 0 % (0-10); HEMATOCRIT 31 % (40-54); HEMOGLOBIN 10.8 g/dL (13.3-17.7); LYMPHOCYTES # (AUTO) 1.7 10^3/uL (1.0-4.0); LYMPHOCYTES % (AUTO) 17 % (12-44); MEAN CORPUSCULAR HEMOGLOBIN 33 pg (25-34); MEAN CORPUSCULAR HGB CONC 35 g/dL (32-36); MEAN PLATELET VOLUME 10.9 fL (9.0-12.2); MONOCYTES # (AUTO) 2.1 10^3/uL (0.0-1.0); MONOCYTES % (AUTO) 20 % (0-12); NEUTROPHILS # (AUTO) 6.3 10^3/uL (1.8-7.8); NEUTROPHILS % (AUTO) 61 % (42-75); PLATELET COUNT 130 10^3/uL (130-400); WHITE BLOOD COUNT 10.2 10^3/uL (4.3-11.0)
[2022-04-28 21:04] LABS: BACTERIA,URINE MODERATE /HPF; BILIRUBIN,URINE 3+ (NEGATIVE)
[2022-04-28 21:12] LABS: AMPHETAMINE SCREEN, URINE NEGATIVE (NEGATIVE); BARBITURATE SCREEN URINE NEGATIVE (NEGATIVE); BENZODIAZEPINES SCREEN URINE NEGATIVE (NEGATIVE); CANNABINOID SCREEN, URINE NEGATIVE (NEGATIVE); COCAINE SCREEN URINE NEGATIVE (NEGATIVE); INR 1.5 (0.8-1.4); METHADONE STAT NEGATIVE (NEGATIVE); OPIATE SCREEN URINE NEGATIVE (NEGATIVE); OXYCODONE STAT NEGATIVE (NEGATIVE); PROPOXYPHENE STAT NEGATIVE (NEGATIVE); TRICYCLIC ANTIDEPRESSANTS SCRE NEGATIVE (NEGATIVE)
[2022-04-28 21:14] LABS: ALANINE AMINOTRANSFERASE 63 U/L (0-55); ALBUMIN 3.9 GM/DL (3.2-4.5); ALKALINE PHOSPHATASE 96 U/L (40-136); AMMONIA 40 UMOL/L (11-32); BILIRUBIN,TOTAL 6.1 MG/DL (0.1-1.0); BUN/CREATININE RATIO 10; CALCIUM 9.4 MG/DL (8.5-10.1); CARBON DIOXIDE 25 MMOL/L (21-32); CHLORIDE 93 MMOL/L (98-107); CREATININE SERUM 1.26 MG/DL (0.60-1.30); GFR ESTIMATED 74; GLUCOSE 152 MG/DL (70-105); MAGNESIUM 1.4 MG/DL (1.6-2.4); POTASSIUM 3.3 MMOL/L (3.6-5.0); SODIUM 132 MMOL/L (135-145); TOTAL PROTEIN 7.7 GM/DL (6.4-8.2)
[2022-04-28] MEDS ORDERED: LACTATED RINGERS 1,000 ML IV ONE (21:15)
[2022-04-28] MEDS ORDERED: MAGNESIUM 1 GM/100 ML IVPB 100 ML IV ONE (21:15)
[2022-04-28 21:25] LABS: ANISOCYTOSIS SLIGHT; LYMPHOCYTES % (MANUAL) 17 %; MONOCYTES % (MANUAL) 16 %; NEUTROPHILS % (MANUAL) 67 %
[2022-04-28] MEDS ORDERED: cefTRIAXone 1 GM PRE-MIX 50 ML IV STA (21:28)
[2022-04-28] MEDS ORDERED: LORazepam INJ 2 MG/ML (ATIVAN) VIAL IVP ONE (21:30)
[2022-04-28 21:34] LABS: TSH (THYROID ANALYZER) 1.26 UIU/ML (0.35-4.94)
--- NOTE | 2022-04-28 21:36 | ED Psychosocial ---
General Chief Complaint: Psych/Social Disorder Stated Complaint: DETOX Nursing Triage Note: visual hallucinations x2-3 days Source: patient Exam Limitations: no limitations History of Present Illness Date Seen by Provider: Apr 28, 2022 Time Seen by Provider: 19:56 Initial Comments This 37-year-old gentleman presents to the emergency room accompanied by friends with concerns about alcohol withdraw. He has been hallucinating for at least 2 days. He was arrested on April 25 for DUI. He has not had any alcohol since that time. He was released after a 48-hour hold and has been hallucinating ever since then. He reportedly had several seizures in intermediate. He does have history of alcoholism and hepatitis C. He reports being treated and cleared from active hepatitis C. He typically drinks 5 beers or more per day and occasionally some hard alcohol as well. He has had some degree of liver disease and has required paracentesis in the past. He also has history of urinary tract infections. Patient is a poor historian at this time as he is hallucinating, jittery, and in denial about his situation. Interspersed in our conversation he talks about the 4 men in the room who are blurry or furry. Friends report that he has been seeing snakes, spiders, etc. and his hallucinations. He has also had some vomiting and has not been eating or drinking. Friends are the primary support system and source of contact. He has parents who live here but they do not speak [place]ian and do not drive. His friend Sudheer Anderson ([phone]) provides much of the history by phone. He has another friend present in the room. They report he is also previously required treatment for hypokalemia. Patient has active tremors and is very jittery/jumpy. Allergies and Home Medications Allergies Coded Allergies: No Known Drug Allergies (Unverified , 05/15/20) Patient Home Medication List Home Medication List Reviewed: Yes No Active Prescriptions or Reported Meds Review of Systems Constitutional: see HPI EENTM: other (Scleral icterus) Respiratory: no symptoms reported Cardiovascular: no symptoms reported Gastrointestinal: see HPI Genitourinary: see HPI Musculoskeletal: no symptoms reported Skin: no symptoms reported Psychiatric/Neurological: See HPI Past Zmtnhtf-Mwddki-Dqwhtb Hx Patient Social History Tobacco Use?: Yes Substance use?: No Alcohol Use?: Yes Alcohol type: Beer, Hard Liquor Alcohol Frequency: Daily Pt feels they are or have been: No Immunizations Up To Date First/Initial COVID19 Vaccinat: 5-19 Second COVID19 Vaccination Marcelino: 6-19 Past Medical History Surgery/Hospitalization HX: hepatitis c+, seizures Surgeries: Yes Abdominal (Paracentesis), Appendectomy Respiratory: No Cardiac: No Neurological: Yes Seizure Disorder (From alcohol withdrawal) Reproductive Disorders: No Genitourinary: Yes UTI-Chronic (History of prior UTIs) Gastrointestinal: No Musculoskeletal: No Endocrine: No HEENT: No Cancer: No Psychosocial: Yes (Alcoholism) Integumentary: No Blood Disorders: No Family Medical History No Pertinent Family Hx Physical Exam Vital Signs - First Documented 04/28/22 04/29/22 19:54 00:09 Temp 37.3 Pulse 119 Resp 16 B/P (MAP) 116/87 (97) Pulse Ox 99 O2 Delivery Room Air O2 Flow Rate 2.00 Capillary Refill : Less Than 3 Seconds Height, Weight, BMI Height: '" Weight: lbs. oz. kg; 25.00 BMI Method: General Appearance: WD/WN, moderate distress, other (Jittery, anxious, hallucinating, pressured speech) HEENT: PERRL/EOMI, pharynx normal, other (Oropharynx dry, scleral icterus) Neck: normal inspection Respiratory: lungs clear, normal breath sounds, no respiratory distress, no accessory muscle use Cardiovascular: no edema, no murmur, tachycardia (Regular) Gastrointestinal: normal bowel sounds, non tender, soft Extremities: normal inspection, no pedal edema Neurologic/Psychiatric: no motor/sensory deficits, alert, other (Tremor, anxious, jittery, hypersensitive to tactile stimulation, confused conversation, active hallucinations) Appearance/Memory: impaired insight Behavior/Eye Contact: cooperative, other (Pressured speech) Skin: normal color, warm/dry Suicide Risk Suicide Risk Suicide Risk Level / RN Screen: Low Low Suicide Risk Level []Suicidal Ideation WITHOUT method, intent, plan or behavior more than a month ago []]Modifiable risk factors and strong protective factors [Y]No reported history of suicidal ideation or behavior []Patient reports/exhibits symptoms consistent with psychosis []Patient reports a plan that would be unrealistic/impossible to complete and intent []Suicide attempt prior to arrival (Indicates at LEAST Low Suicide Risk, consider other risk factors) Moderate Suicide Risk Level: []Suicidal ideation with method, WITHOUT plan, intent or behavior in the past month []Multiple risk factors and few protective factors []Patient reports intent to follow through on plan to end life if allowed to leave hospital, and has attempted to elope from the hospital High Suicide Risk Level: [] Suicidal ideation with intent or intent with a plan in the past month [] Patient has harmed self or attempted suicide while in the hospital [] Patient has hx of or current Command Auditory hallucinations to harm self or others that they follow without hesitation [] Patient refuses to disclose plan, and indicates intent to complete [] Patient reports plan that is possible to accomplish and/or has means to complete Risk factors supporting recommendation: [] Non-compliance with treatment (acute or chronic) [] Patient has access to or owns firearms and/or stockpiled medications [] Hx Impulsive behavior [] Pending incarceration or homelessness [] Sexual abuse [] Family history and/or exposure to suicide [] Adverse childhood experiences [] Exposure to violence or negative socio-political cultural, and economic forces [] Current or hx of substance use/abuse [] Chronic physical pain or other acute medical problem (AIDS, COPD, Cancer, etc) [] Perceived burden on family or others [] Patient has attempted to elope [] Unable to answer and/or unable to identify [] Refuses to agree to a safety plan Protective Factors supporting recommendation: [] Identifies reasons for living [] Future plans/goals [] Engaged in work or School [] Good family support network [] Good social support network [] Responsibility to family [] Belief that suicide is immoral, against their sabianist beliefs [] High spirituality and involvement in holiness community [] Fear of or dying due to pain and suffering [] Established outpt psychiatric services [] Unable to answer and/or unable to identify Progress/Results/Core Measures Results/Orders Lab Results Laboratory Tests Test 04/28/22 20:47 04/28/22 21:31 04/29/22 04:16 Range/Units White Blood Count 10.2 5.6 4.3-11.0 10^3/uL Red Blood Count 3.28 L 2.67 L 4.30-5.52 10^6/uL Hemoglobin 10.8 L 9.0 L 13.3-17.7 g/dL Hematocrit 31 L 26 L 40-54 % Mean Corpuscular Volume 94 97 80-99 fL Mean Corpuscular Hemoglobin 33 34 25-34 pg Mean Corpuscular Hemoglobin Concent 35 35 32-36 g/dL Red Cell Distribution Width 13.6 13.9 10.0-14.5 % Platelet Count 130 82 L 130-400 10^3/uL Mean Platelet Volume 10.9 11.8 9.0-12.2 fL Immature Granulocyte % (Auto) 1 1 % Neutrophils (%) (Auto) 61 49 42-75 % Lymphocytes (%) (Auto) 17 30 12-44 % Monocytes (%) (Auto) 20 H 17 H 0-12 % Eosinophils (%) (Auto) 0 3 0-10 % Basophils (%) (Auto) 1 1 0-10 % Neutrophils # (Auto) 6.3 2.8 1.8-7.8 10^3/uL Lymphocytes # (Auto) 1.7 1.7 1.0-4.0 10^3/uL Monocytes # (Auto) 2.1 H 1.0 0.0-1.0 10^3/uL Eosinophils # (Auto) 0.0 0.1 0.0-0.3 10^3/uL Basophils # (Auto) 0.1 0.1 0.0-0.1 10^3/uL Immature Granulocyte # (Auto) 0.1 0.0 0.0-0.1 10^3/uL Neutrophils % (Manual) 67 % Lymphocytes % (Manual) 17 % Monocytes % (Manual) 16 % Percent Immature Platelet Fraction 6.4 8.8 H 0.0-7.6 % Anisocytosis SLIGHT Prothrombin Time 19.0 H 12.2-14.7 SEC INR Comment 1.5 H 0.8-1.4 Urine Color YELLOW Urine Clarity CLEAR Urine pH 5.0 5-9 Urine Specific [place] 1.025 H 1.016-1.022 Urine Protein 2+ H NEGATIVE Urine Glucose (UA) NEGATIVE NEGATIVE Urine Ketones 2+ H NEGATIVE Urine Nitrite POSITIVE H NEGATIVE Urine Bilirubin 3+ H NEGATIVE Urine Urobilinogen 4.0 < = 1.0 MG/DL Urine Leukocyte Esterase TRACE H NEGATIVE Urine RBC (Auto) TRACE-I H NEGATIVE Urine RBC NONE /HPF Urine WBC 2-5 /HPF Urine Squamous Epithelial Cells 2-5 /HPF Urine Crystals NONE /LPF Urine Bacteria MODERATE H /HPF Urine Casts PRESENT /LPF Urine Hyaline Casts 5-10 H /LPF Urine Mucus LARGE H /LPF Urine Culture Indicated YES Sodium Level 132 L 131 L 135-145 MMOL/L Potassium Level 3.3 L 3.1 L 3.6-5.0 MMOL/L Chloride Level 93 L 100 98-107 MMOL/L Carbon Dioxide Level 25 22 21-32 MMOL/L Anion Gap 14 9 5-14 MMOL/L Blood Urea Nitrogen 13 11 7-18 MG/DL Creatinine 1.26 0.84 0.60-1.30 MG/DL Estimat Glomerular Filtration Rate 74 114 BUN/Creatinine Ratio 10 13 Glucose Level 152 H 175 H 70-105 MG/DL Calcium Level 9.4 7.3 L 8.5-10.1 MG/DL Corrected Calcium 9.5 8.3 L 8.5-10.1 MG/DL Magnesium Level 1.4 L 1.8 1.6-2.4 MG/DL Total Bilirubin 6.1 H 3.8 #H 0.1-1.0 MG/DL Aspartate Amino Transf (AST/SGOT) 333 H 217 H 5-34 U/L Alanine Aminotransferase (ALT/SGPT) 63 H 45 0-55 U/L Alkaline Phosphatase 96 64 40-136 U/L Ammonia 40 H 11-32 UMOL/L C-Reactive Protein High Sensitivity 1.31 H 0.87 H 0.00-0.50 MG/DL Total Protein 7.7 5.3 L 6.4-8.2 GM/DL Albumin 3.9 2.7 L 3.2-4.5 GM/DL Procalcitonin 0.27 H <0.10 NG/ML TSH [place] Testing 1.26 0.35-4.94 UIU/ML Urine Opiates Screen NEGATIVE NEGATIVE Urine Oxycodone Screen NEGATIVE NEGATIVE Urine Methadone Screen NEGATIVE NEGATIVE Urine Propoxyphene Screen NEGATIVE NEGATIVE Urine Barbiturates Screen NEGATIVE NEGATIVE Ur Tricyclic Antidepressants Screen NEGATIVE NEGATIVE Urine Phencyclidine Screen NEGATIVE NEGATIVE Urine Amphetamines Screen NEGATIVE NEGATIVE Urine Methamphetamines Screen POSITIVE H NEGATIVE Urine Benzodiazepines Screen NEGATIVE NEGATIVE Urine Cocaine Screen NEGATIVE NEGATIVE Urine Cannabinoids Screen NEGATIVE NEGATIVE Serum Alcohol < 10 <10 MG/DL Lactic Acid Level 1.86 0.50-2.00 MMOL/L Absolute Reticulocyte Count 84 24-90 10e9/uL Percent Reticulocyte Count 3.13 H 0.50-2.40 % Phosphorus Level 4.4 2.3-4.7 MG/DL Lipase 23 8-78 U/L My Orders Orders - DARRON KEY MD Alcohol (04/28/22 20:25) Ammonia (04/28/22 20:25) Cbc With Automated Diff (04/28/22 20:25) Comprehensive Metabolic Panel (04/28/22 20:25) Drug Screen Stat (Urine) (04/28/22 20:25) Magnesium (04/28/22 20:25) Protime With Inr (04/28/22 20:25) Thyroid Analyzer (04/28/22 20:25) Ua Culture If Indicated (04/28/22 20:25) Ed Iv/Invasive Line Start (04/28/22 20:25) Manual Differential (04/28/22 20:47) Urine Culture (04/28/22 20:47) Lactated Ringers (Lr 1000 Ml Iv Solution (04/28/22 21:15) Chlamydia Trachomatis Urine (04/28/22 21:14) Neis Clem Dna Urine Test (04/28/22 21:14) Magnesium 1 Gm/100 Ml Ivpb (Magnesium Grey (04/28/22 21:15) Hs C Reactive Protein (04/28/22 21:16) Procalcitonin (Pct) (04/28/22 21:16) Lorazepam Injection (Ativan Injection) (04/28/22 21:30) Blood Culture (04/28/22 21:28) Remove Rings In Anticipation O (04/28/22 21:28) Lactic Acid Analyzer (04/28/22 21:28) Ceftriaxone 1 Gm Pre-Mix (Rocephin 1 Gm (04/28/22 21:28) Medications Given in ED Current Medications Medications Dose Ordered Sig/Saúl Route Start Time Stop Time Status Last Admin Dose Admin Lactated Ringer's 1,000 ml @ 0 mls/hr Q0M ONCE IV 04/28/22 21:15 04/28/22 21:16 DC 04/28/22 21:34 0 MLS/HR Lorazepam 2 mg ONCE ONCE IVP 04/28/22 21:30 04/28/22 21:31 DC 04/28/22 21:51 2 MG Magnesium Sulfate/ Dextrose 100 ml @ 100 mls/hr ONCE ONCE IV 8/4/22 21:15 04/28/22 22:14 DC 04/28/22 21:34 100 MLS/HR Vital Signs/I&O 04/28/22 04/28/22 04/28/22 04/28/22 19:54 22:03 22:15 22:21 Temp 37.3 36.6 37.3 Pulse 119 90 90 101 Resp 16 18 22 B/P (MAP) 116/87 (97) 112/74 110/49 110/49 Pulse Ox 99 100 98 O2 Delivery Room Air Room Air Room Air 04/28/22 04/28/22 04/28/22 04/28/22 22:22 22:30 22:45 23:00 Pulse 90 104 102 96 Resp 19 19 17 B/P (MAP) 109/76 107/72 89/60 Pulse Ox 100 96 94 O2 Delivery Room Air Room Air Room Air 04/28/22 04/28/22 04/29/22 04/29/22 23:28 23:30 00:00 00:09 Pulse 81 96 Resp 15 20 B/P (MAP) 74/53 129/21 Pulse Ox 93 91 O2 Delivery Room Air Room Air Room Air Nasal Cannula O2 Flow Rate 2.00 04/29/22 04/29/22 04/29/22 04/29/22 01:00 01:00 02:00 02:40 Pulse 77 77 74 Resp 28 26 B/P (MAP) 85/49 78/46 Pulse Ox 96 94 O2 Delivery Nasal Cannula Nasal Cannula Nasal Cannula O2 Flow Rate 2.00 2.00 4.00 04/29/22 04/29/22 04/29/22 04/29/22 03:00 04:00 04:19 04:20 Pulse 67 66 Resp 25 22 B/P (MAP) 81/50 90/61 85/48 Pulse Ox 99 99 O2 Delivery Nasal Cannula Nasal Cannula Room Air O2 Flow Rate 4.00 4.00 04/29/22 04/29/22 04/29/22 05:00 06:00 06:37 Pulse 57 71 Resp 19 20 B/P (MAP) 100/67 Pulse Ox 100 95 95 O2 Delivery Nasal Cannula Nasal Cannula High Flow N/C O2 Flow Rate 4.00 4.00 4.00 Blood Pressure Mean: 97 Progress Progress Note #1: Time: 21:38 Progress Note Patient was interviewed and examined. Much of the history was obtained from iends. Patient is clearly withdrawing from alcohol with tremors and hallucinations. He was found to have urinary tract infection. Septic work-up is being pursued and he is being given Rocephin. Patient and friends report interest in treatment for alcoholism when his withdraw is over. Patient is also receiving IV fluids and magnesium replacement. Ativan 2 mg IV is being admini stered for his withdrawal. Progress Note #2: Time: 21:51 Progress Note Case reviewed with Dr. Sanchez who accepts admission. Report also given to Dr. Paulino in eICU as well. She requested a Precedex drip to be started to reduce need for Ativan because of the present nationwide shortage. Departure Communication (Admissions) Time/Spoke to Admitting Phy: 21:40 Dr. Sanchez Time/Spoke to Consulting Phy: 21:45 Dr. Paulino with eICU Impression Primary Impression: Alcohol withdrawal Qualified Codes: F10.931 - Alcohol use, unspecified with withdrawal delirium Additional Impressions: Hallucinations Hypomagnesemia Urinary tract infection Qualified Codes: N39.0 - Urinary tract infection, site not specified Alcoholism Positive urine drug screen Disposition: ADMITTED INPATIENT Condition: Stable Admissions Decision to Admit Reason: Admit from ER (General) Decision to Admit/Date: Apr 28, 2022 Time/Decision to Admit Time: 21:40 Departure-Patient Inst. Referrals: NO,LOCAL PHYSICIAN (PCP) Primary Care Physician CATHY TIPTON DO (Family) Primary Care Physician Scripts No Active Prescriptions or Reported Meds DARRON KEY MD Apr 28, 2022 21:36
[2022-04-28] MEDS ORDERED: ONDANSETRON 4 MG/2 ML (SDV) Z0FRAN IV PRN (22:15)
[2022-04-28] MEDS ORDERED: ANTACID SUSP 30 ML UDC (MYLANTA) PO PRN (22:15)
[2022-04-28] MEDS ORDERED: D5 1/2 NS 1000 ML IV SOLUTION 1,000 ML IV PRN (22:15)
[2022-04-28] MEDS ORDERED: LORazepam INJ 2 MG/ML (ATIVAN) VIAL IM/IV PRN (22:15)
[2022-04-28] MEDS ORDERED: DexMEDEtomidine 250 ML DRIP 250 ML IV SCH (22:15)
[2022-04-28] MEDS ORDERED: ONDANSETRON 4 MG (ZOFRAN) ORAL DISSOLVE TAB SL PRN (22:15)
[2022-04-28] MEDS ORDERED: 1/2 NS IV SOLUTION 1,000 ML IV PRN (22:15)
[2022-04-28] MEDS ORDERED: SENNA W/DOCUSATE (SENOKOT S) TABLET PO PRN (22:15)
[2022-04-28] MEDS ORDERED: DexMEDEtomidine 250 ML DRIP 250 ML IV ONE (22:19)
[2022-04-28] MEDS: D5 1/2 NS W/KCL 20 MEQ/L 1,000 ML IV SCH (22:58)
[2022-04-28] MEDS: LORazepam INJ 2 MG/ML (ATIVAN) VIAL IV PRN (23:53)
[2022-04-29] MEDS ORDERED: LACTATED RINGERS 1,000 ML IV SCH
--- NOTE | 2022-04-29 00:02 | Tele-ICU Progress Note ---
Progress Note 37M arrested for DUI 4-5 days ago. Developed withdrawal syndrome during 48 hour incarceration, possibly with seizures. Since leaving has had severe persistent hallucinations prompting presentation. - EtOH withdarwal with risk of progression to severe and even fatal withdrwals. Also noted to be amphetamine positive, given timeline likely used after skilled nursing release. May be contributing factor. Precedex started on arrival to ICU, CIWA ongoing. Low thresshold to start alternative agent, likely phenobarbital if patient has high ativan requirements. Current ativan supply is adequate, but there is still a national shortage and restock might be limited. - UTI: incidental finding. Rocephin initiated. Cultures pending. - transaminitis/coagulopathy: secondary to etoh with significant liver damage and intrinsic dysfunction. No active intervention. Would encourage rehab when patient is able to further discuss his disposition. - hypokalemia/hypomag: repleted Focused Exam Lactate Level 04/28/22 21:31: Lactic Acid Level 1.86 Height, Weight, BMI Height: '" Weight: lbs. oz. kg; 25.00 BMI Method: Lactic Acid Level Laboratory Tests Test 04/28/22 21:31 Lactic Acid Level 1.86 MMOL/L (0.50-2.00) YULI ENGEL MD Apr 29, 2022 00:02
[2022-04-29] MEDS ORDERED: NS IV 1000 ML 1,000 ML ONE (02:40)
[2022-04-29] MEDS ORDERED: NS IV 1000 ML 1,000 ML IV SCH ×2 (02:45)
[2022-04-29] MEDS ORDERED: PHENYLEPHRINE DRIP 250 ML IV ONE (04:02)
[2022-04-29] MEDS: PHENYLEPHRINE DRIP 250 ML IV SCH ×3 (04:19→23:44)
[2022-04-29 04:42] LABS: ALBUMIN 2.7 GM/DL (3.2-4.5); POTASSIUM 3.1 MMOL/L (3.6-5.0)
[2022-04-29 04:43] LABS: CALCIUM 7.3 MG/DL (8.5-10.1)
[2022-04-29 04:45] LABS: TOTAL PROTEIN 5.3 GM/DL (6.4-8.2)
[2022-04-29 04:46] LABS: BILIRUBIN,TOTAL 3.8 MG/DL (0.1-1.0)
[2022-04-29 04:48] LABS: CREATININE SERUM 0.84 MG/DL (0.60-1.30); PHOSPHORUS 4.4 MG/DL (2.3-4.7)
[2022-04-29 04:51] LABS: MAGNESIUM 1.8 MG/DL (1.6-2.4)
[2022-04-29] MEDS: LORazepam INJ 2 MG/ML (ATIVAN) VIAL IV PRN ×2 (05:25→08:42)
[2022-04-29] MEDS: NOREPINEPHRINE 8 MG/250 ML 250 ML IV SCH ×2 (05:52→23:44)
[2022-04-29] MEDS: D5 1/2 NS W/KCL 20 MEQ/L 1,000 ML IV SCH ×3 (05:54→20:06)
--- NOTE | 2022-04-29 07:16 | Diagnostic Imaging Report ---
PROCEDURE: CT head without contrast. TECHNIQUE: Multiple contiguous axial images were obtained through the brain without the use of intravenous contrast. Auto Exposure Controls were utilized during the CT exam to meet ALARA standards for radiation dose reduction. INDICATION: Acute mental status change EXAMINATION: CT brain without contrast dated 04/29/2022. FINDINGS: There is atrophy greater than expected for patient's age. Mild chronic ischemic changes noted in the periventricular distribution. No superimposed acute hemorrhage or infarct is seen. There is no mass, mass effect or midline shift with no hydrocephalus. Paranasal sinuses and mastoid air cells clear. Calvarium intact. IMPRESSION: 1. No acute intracranial process. Dictated by: Dictated on workstation # [id number]
[2022-04-29 07:22] LABS: ABSOLUTE RETIC # 84 10e9/uL (24-90); EOSINOPHILS # (AUTO) 0.1 10^3/uL (0.0-0.3); EOSINOPHILS % (AUTO) 3 % (0-10); HEMATOCRIT 26 % (40-54)
[2022-04-29 07:25] LABS: BASOPHILS # (AUTO) 0.1 10^3/uL (0.0-0.1); BASOPHILS % (AUTO) 1 % (0-10); LYMPHOCYTES # (AUTO) 1.7 10^3/uL (1.0-4.0); LYMPHOCYTES % (AUTO) 30 % (12-44); MEAN CORPUSCULAR HEMOGLOBIN 34 pg (25-34); MEAN CORPUSCULAR HGB CONC 35 g/dL (32-36); MEAN CORPUSCULAR VOLUME 97 fL (80-99); MEAN PLATELET VOLUME 11.8 fL (9.0-12.2); MONOCYTES % (AUTO) 17 % (0-12); NEUTROPHILS # (AUTO) 2.8 10^3/uL (1.8-7.8); NEUTROPHILS % (AUTO) 49 % (42-75); PLATELET COUNT 82 10^3/uL (130-400); RETICULOCYTE % 3.13 % (0.50-2.40); WHITE BLOOD COUNT 5.6 10^3/uL (4.3-11.0)
[2022-04-29 07:55] LABS: POTASSIUM 3.4 MMOL/L (3.6-5.0)
[2022-04-29 07:56] LABS: CALCIUM 7.5 MG/DL (8.5-10.1)
[2022-04-29 07:58] LABS: TOTAL PROTEIN 5.9 GM/DL (6.4-8.2)
[2022-04-29 07:59] LABS: BILIRUBIN,TOTAL 4.3 MG/DL (0.1-1.0)
[2022-04-29 08:01] LABS: CREATININE SERUM 0.78 MG/DL (0.60-1.30)
[2022-04-29 08:04] LABS: MAGNESIUM 1.8 MG/DL (1.6-2.4)
--- NOTE | 2022-04-29 08:04 | Tele-ICU Progress Note ---
Subjective Date Seen by a Provider: Apr 29, 2022 Time Seen by a Provider: 08:01 Subjective/Events-last exam 37 yo M with hx of heavy EtOH use, now in withdrawal with ? Sz, on IV Precedex, now on hold due to drop in BP, on IV candis, to get central line for levo, Also got IV Ativan for CIWA, tremors Showing signs of EtOH liver disease with todays T Bili 3.8, going down, AST 217, ALT 45 CT head shows advanced cerebral atrophy INR 1.5 Sepsis Event Evaluation Height, Weight, BMI Height: '" Weight: lbs. oz. kg; 25.00 BMI Method: Focused Exam Lactate Level 04/28/22 21:31: Lactic Acid Level 1.86 Exam Exam Patient acknowledged, consented, and participated in this virtual visit which was conducted using real time audio/video Vital Signs Date Time Temp Pulse Resp B/P (MAP) Pulse Ox O2 Delivery O2 Flow Rate FiO2 04/29/22 07:00 65 04/29/22 06:37 95 High Flow N/C 4.00 04/29/22 06:00 71 20 95 Nasal Cannula 4.00 04/29/22 05:00 57 19 100/67 100 Nasal Cannula 4.00 04/29/22 04:20 Room Air 04/29/22 04:19 85/48 04/29/22 04:00 66 22 90/61 99 Nasal Cannula 4.00 04/29/22 03:00 67 25 81/50 99 Nasal Cannula 4.00 04/29/22 02:40 Nasal Cannula 4.00 04/29/22 02:00 74 26 78/46 94 Nasal Cannula 2.00 04/29/22 01:00 77 04/29/22 01:00 77 28 85/49 96 Nasal Cannula 2.00 04/29/22 00:09 Nasal Cannula 2.00 04/29/22 00:00 96 20 129/21 91 Room Air 04/28/22 23:30 81 15 74/53 93 Room Air 04/28/22 23:28 Room Air 04/28/22 23:00 96 17 89/60 94 Room Air 04/28/22 22:45 102 19 107/72 96 Room Air 04/28/22 22:30 104 19 109/76 100 Room Air 04/28/22 22:22 90 8/4/22 22:21 101 110/49 04/28/22 22:15 37.3 90 22 110/49 98 Room Air 04/28/22 22:03 36.6 90 18 112/74 100 Room Air 04/28/22 19:54 37.3 119 16 116/87 (97) 99 Room Air I & O 04/29/22 07:00 Intake Total 4290 ml Output Total 1000 ml Balance 3290 ml Height & Weight Height: '" Weight: lbs. oz. kg; 25.00 BMI Method: General Appearance: Mild Distress, Moderate Distress Respiratory: Crackles Cardiovascular: Regular Rate, Rhythm Capillary Refill: Less Than 3 Seconds Gastrointestinal: normal bowel sounds, non tender, soft Extremity: No Pedal Edema Neurologic/Psychiatric: Disoriented Results Lab Laboratory Tests 04/28/22 20:47 04/29/22 04:16 04/29/22 05:45 Assessment/Plan Assessment/Plan EtOH withdrawal, continue IV Precedex for now monitor LFT's Add IV Ativan or phenobarbital if needed Critical Care: Critically Ill Patient TITUS FRAGOSO MD Apr 29, 2022 08:04
[2022-04-29 08:30] LABS: EOSINOPHILS % (MANUAL) 3 %; LYMPHOCYTES % (MANUAL) 32 %; MONOCYTES % (MANUAL) 9 %; NEUTROPHILS % (MANUAL) 56 %; RBC MORPH NORMAL
--- NOTE | 2022-04-29 15:53 | Diagnostic Imaging Report ---
INDICATION: PICC line placement. TIME OF EXAM: 3:48 p.m. No prior studies are available for comparison. FINDINGS: The heart size is mildly enlarged on this portable technique. There is a left upper extremity PICC line which has the tip near the junction of the left innominate vein and SVC. Lungs are clear apart from minimal linear atelectasis at the left base. No effusion or pneumothorax is detected. IMPRESSION: Left PICC line placement, as described. Dictated by: Dictated on workstation # [id number]
--- NOTE | 2022-04-29 16:07 | History & Physical-Hospitalist ---
History of Present Illness HPI/Chief Complaint Lynn Anderson is a 37 year old male who presented with concern for alcohol withdrawal. He was accompanied by friends to the ER. He was reportedly arrested a few days ago due to DUI. He has not had a drink since that time. His friends reported that he has been hallucinating over the past couple days. He reports that he had a seizure. He denies any history of alcohol withdrawal. The ER reports that he drinks many beers and hard liquor drinks daily, but he says he only has a couple drinks of Trey Walker Red Label each day. He denies chest pain. He denies shortness of breath. Source: patient, RN/MD Exam Limitations: clinical condition Date Seen 04/29/22 Time Seen by a Provider: 10:35 Attending Physician No,Local Physician PCP Admitting Physician: Fallon Sanchez DO Attending Physician: Toy Soctt MD Referring Physician Date of Admission Apr 28, 2022 at 21:48 Home Medications & Allergies Home Medications Reviewed patient Home Medication Reconciliation performed by pharmacy medication reconciliations photographic technician and/or nursing. Patients Allergies have been reviewed. Allergies Allergies Coded Allergies No Known Drug Allergies (Unverified05/15/20) Past Jqosdqv-Vnsmsw-Cqpszp Hx Patient Social History Tobacco Use?: Yes Substance use?: No Alcohol Use?: Yes Alcohol type: Beer, Hard Liquor Alcohol Frequency: Daily Pt feels they are or have been: No Immunizations Up To Date First/Initial COVID19 Vaccinat: 5-19 Second COVID19 Vaccination Marcelino: 6-19 Tetanus Booster (TDap): Unknown Date of Pneumonia Vaccine: Apr 25, 2014 Current Status Advance Directives: No Communicates: Verbally Primary Language: Israeli Preferred Spoken Language: Israeli Implanted or Applied Medical D: None Past Medical History Surgeries: Abdominal (Paracentesis), Appendectomy Seizure Disorder (From alcohol withdrawal) UTI-Chronic (History of prior UTIs) Blood Disorders: No Family Medical History No Pertinent Family Hx Review of Systems Constitutional: no symptoms reported EENTM: no symptoms reported Respiratory: no symptoms reported Cardiovascular: no symptoms reported Gastrointestinal: nausea Genitourinary: no symptoms reported Physical Exam Physical Exam Vital Signs Vital Signs - First Documented 04/28/22 04/29/22 19:54 00:09 Temp 37.3 Pulse 119 Resp 16 B/P (MAP) 116/87 (97) Pulse Ox 99 O2 Delivery Room Air O2 Flow Rate 2.00 Capillary Refill : Less Than 3 Seconds Height, Weight, BMI Height: '" Weight: lbs. oz. kg; 27.40 BMI Method: General Appearance: No Apparent Distress, WD/WN HEENT: PERRL/EOMI, Pharynx Normal, Scleral Icterus (L), Scleral Icterus (R) Neck: Normal Inspection, Supple Respiratory: Lungs Clear, Normal Breath Sounds, No Respiratory Distress Cardiovascular: Regular Rate, Rhythm, No Murmur Extremity: Normal Inspection, Pedal Edema Neurologic/Psychiatric: Alert, Normal Mood/Affect, Disoriented Skin: Warm/Dry, Jaundice Results Results/Procedures Labs Laboratory Tests 04/28/22 20:47 04/29/22 04:16 04/29/22 05:45 Patient resulted labs reviewed. Imaging: Reviewed Imaging Report Assessment/Plan Admission Diagnosis Alochol dependence with withdrawal Admission Status: Inpatient Order (span 2 midnights) Reason for Inpatient Admission: EtOH withdrawal Assessment and Plan Alochol dependence with withdrawal Acute alcoholic hepatitis Thrombocytopenia Elevated LFTs Hepatitis C Possible cirrhosis [facility] protocol Ativan as needed Monitor closely TeleICU following Electrolyte abnormalities Monitor and correct as needed Hypotension Phenylephrine Possibly due to liver disease DVT prophylaxis: Lovenox Diagnosis/Problems Diagnosis/Problems (1) Alcohol dependence with withdrawal with perceptual disturbance Status: Acute (2) Thrombocytopenia Status: Acute (3) Elevated LFTs Status: Acute (4) Hepatitis C Status: Chronic Qualifiers: Viral hepatitis chronicity: chronic Hepatic coma status: without hepatic coma Qualified Codes: B18.2 - Chronic viral hepatitis C (5) Electrolyte abnormality Status: Acute (6) Hypotension Status: Acute TOY SCOTT MD Apr 29, 2022 16:07
--- NOTE | 2022-04-29 18:13 | Diagnostic Imaging Report ---
EXAMINATION: Chest 1 view. HISTORY: PICC line placement. COMPARISON: 04/29/2022. FINDINGS: Heart size and pulmonary vasculature are normal. Mild perihilar and basilar interstitial opacities. No pleural effusion or pneumothorax. The osseous structures are intact. A left-sided PICC line is present with the tip projecting over the right atrium. IMPRESSION: 1. Left-sided PICC line with the tip projecting over the right atrium. No pneumothorax. 2. Perihilar and basilar interstitial opacities are unchanged. Dictated by: Dictated on workstation # [id number]
[2022-04-29] MEDS: ENOXAPARIN 40 MG/0.4 ML (LOVENOX) SYR SQ SCH (18:27)
[2022-04-29] MEDS: LORazepam 1 MG (ATIVAN) TAB PO PRN (19:55)
[2022-04-29] MEDS: THIAMINE INJECTION 100 MG, FOLIC ACID INJECTION 1 MG, MAGNESIUM SULFATE 2 GM, VITAMIN M... IV SCH ×5 (20:06)
[2022-04-29] MEDS: cefTRIAXone 1 GM/50 ML (PRE-MIX) IV SCH (20:30)
[2022-04-30] MEDS: LORazepam 1 MG (ATIVAN) TAB PO PRN ×2 (01:06→02:12)
[2022-04-30] MEDS: D5 1/2 NS W/KCL 20 MEQ/L 1,000 ML IV SCH ×5 (01:06→23:29)
[2022-04-30] MEDS: NOREPINEPHRINE 8 MG/250 ML 250 ML IV SCH (02:24)
[2022-04-30 04:02] LABS: BASOPHILS % (AUTO) 1 % (0-10); EOSINOPHILS # (AUTO) 0.1 10^3/uL (0.0-0.3); EOSINOPHILS % (AUTO) 2 % (0-10); HEMOGLOBIN 8.2 g/dL (13.3-17.7); MEAN CORPUSCULAR VOLUME 96 fL (80-99)
[2022-04-30 04:04] LABS: HEMATOCRIT 24 % (40-54); LYMPHOCYTES % (AUTO) 23 % (12-44); MEAN CORPUSCULAR HEMOGLOBIN 33 pg (25-34); MEAN CORPUSCULAR HGB CONC 35 g/dL (32-36); MEAN PLATELET VOLUME 10.7 fL (9.0-12.2); MONOCYTES # (AUTO) 0.9 10^3/uL (0.0-1.0); MONOCYTES % (AUTO) 20 % (0-12); NEUTROPHILS # (AUTO) 2.4 10^3/uL (1.8-7.8); NEUTROPHILS % (AUTO) 54 % (42-75); PLATELET COUNT 75 10^3/uL (130-400); WHITE BLOOD COUNT 4.4 10^3/uL (4.3-11.0)
[2022-04-30 04:05] LABS: ALBUMIN 2.7 GM/DL (3.2-4.5)
[2022-04-30 04:06] LABS: POTASSIUM 3.2 MMOL/L (3.6-5.0)
[2022-04-30 04:07] LABS: CALCIUM 7.3 MG/DL (8.5-10.1)
[2022-04-30 04:08] LABS: TOTAL PROTEIN 5.4 GM/DL (6.4-8.2)
[2022-04-30 04:10] LABS: BILIRUBIN,TOTAL 3.9 MG/DL (0.1-1.0)
[2022-04-30 04:11] LABS: PHOSPHORUS 1.7 MG/DL (2.3-4.7)
[2022-04-30 04:12] LABS: CREATININE SERUM 0.63 MG/DL (0.60-1.30)
[2022-04-30 04:14] LABS: MAGNESIUM 2.2 MG/DL (1.6-2.4)
[2022-04-30] MEDS ORDERED: NS IV 500 ML 500 ML IV PRN (04:15)
[2022-04-30] MEDS: POTASSIUM CL 10MEQ/50ML IVPB 50 ML IV SCH ×4 (04:22→07:37)
[2022-04-30] MEDS: MAGNESIUM 1 GM/100 ML IVPB 100 ML IV SCH (06:20)
[2022-04-30] MEDS: KCL 20 MEQ TAB (K-DUR) PO SCH (06:20)
--- NOTE | 2022-04-30 07:44 | Tele-ICU Progress Note ---
Subjective Date Seen by a Provider: Apr 30, 2022 Time Seen by a Provider: 07:38 Subjective/Events-last exam 37 yo M with hx of heavy EtOH use, now in withdrawal with ? Sz, on IV Precedex @ 0.1, Now off pressors, has PICC line, Still needing IV Ativan, CIWA estimated to be 26 at 2 am, Showing signs of EtOH liver disease with todays T Bili 3.9, other LFT's going down, AST 192, Potassium 3.2, corrected calcium normal, phosphorus low at 1.7, CT head shows advanced cerebral atrophy Sepsis Event Evaluation Height, Weight, BMI Height: '" Weight: lbs. oz. kg; 26.36 BMI Method: Focused Exam Lactate Level 04/28/22 21:31: Lactic Acid Level 1.86 Exam Exam Patient acknowledged, consented, and participated in this virtual visit which was conducted using real time audio/video Vital Signs Date Time Temp Pulse Resp B/P (MAP) Pulse Ox O2 Delivery O2 Flow Rate FiO2 04/30/22 06:00 70 29 106/69 98 Nasal Cannula 2.00 04/30/22 05:00 75 28 96/49 99 Nasal Cannula 2.00 04/30/22 04:12 36.9 04/30/22 04:01 Nasal Cannula 04/30/22 04:00 81 30 100/63 99 Nasal Cannula 2.00 04/30/22 03:00 79 20 121/63 94 Nasal Cannula 2.00 04/30/22 02:24 61/30 04/30/22 02:00 84 21 112/66 99 Nasal Cannula 2.00 04/30/22 01:00 90 04/30/22 01:00 86 23 110/86 99 Nasal Cannula 2.00 04/30/22 00:00 Nasal Cannula 04/30/22 00:00 77 25 108/63 99 Nasal Cannula 2.00 04/29/22 23:00 86 37 108/60 100 Nasal Cannula 2.00 04/29/22 22:00 78 34 108/61 98 Nasal Cannula 2.00 04/29/22 21:00 84 32 116/63 98 Nasal Cannula 2.00 04/29/22 20:30 37.4 04/29/22 20:13 Nasal Cannula 2.00 04/29/22 20:00 80 26 119/68 97 Nasal Cannula 4.00 04/29/22 20:00 Nasal Cannula 04/29/22 19:00 79 28 116/66 96 Nasal Cannula 4.00 04/29/22 19:00 95 04/29/22 18:00 83 21 115/74 94 Nasal Cannula 4.00 04/29/22 17:00 72 93/42 99 Nasal Cannula 4.00 04/29/22 16:15 36.9 04/29/22 16:00 Room Air 04/29/22 16:00 68 24 109/57 98 Nasal Cannula 4.00 04/29/22 14:00 71 15 92/62 98 Nasal Cannula 4.00 04/29/22 13:00 59 28 92/60 97 Nasal Cannula 4.00 04/29/22 12:39 58 04/29/22 12:30 72 93/42 04/29/22 12:00 65 27 88/55 99 Nasal Cannula 4.00 04/29/22 12:00 Room Air 04/29/22 11:00 60 27 100/54 98 Nasal Cannula 4.00 04/29/22 10:00 60 26 91/62 99 Nasal Cannula 4.00 04/29/22 09:00 66 25 96/65 99 Nasal Cannula 4.00 04/29/22 08:00 75 23 112/91 100 Nasal Cannula 4.00 04/29/22 08:00 Room Air 04/29/22 08:00 36.1 l I & O 04/30/22 07:00 Intake Total 2545.2 ml Output Total 1355 ml Balance 1190.2 ml Height & Weight Height: '" Weight: lbs. oz. kg; 26.36 BMI Method: General Appearance: No Apparent Distress, WD/WN HEENT: PERRL/EOMI, Pharynx Normal, Scleral Icterus (L), Scleral Icterus (R) Neck: Normal Inspection, Supple Respiratory: Lungs Clear, Normal Breath Sounds, No Respiratory Distress Cardiovascular: Regular Rate, Rhythm, No Edema, No Murmur Capillary Refill: Less Than 3 Seconds Gastrointestinal: normal bowel sounds, non tender, soft Extremity: Normal Inspection, Pedal Edema, Other (PICC line LUE, site looks ok) Neurologic/Psychiatric: Alert, Normal Mood/Affect, Disoriented, Other (sedated, needing IV Ativan, on IV Precedex) Skin: Warm/Dry, Jaundice Results Lab Laboratory Tests 04/28/22 20:47 04/29/22 04:16 04/29/22 05:45 04/30/22 03:45 Assessment/Plan Assessment/Plan will continue to observe, needs IV Ativan PRN, needs telesitter, Continue IV Precedex, 2 lpm NC BP is 104/63, so far no need for pressors Critical Care: Critically Ill Patient Time spent with patient (mins): 30 TITUS FRAGOSO MD Apr 30, 2022 07:44
[2022-04-30] MEDS: THIAMINE INJECTION 100 MG, FOLIC ACID INJECTION 1 MG, MAGNESIUM SULFATE 2 GM, VITAMIN M... IV SCH ×5 (09:31)
--- NOTE | 2022-04-30 13:38 | Progress Note - Hospitalist ---
Subjective HPI/CC On Admission Date Seen by Provider: Apr 30, 2022 Time Seen by Provider: 10:40 Lynn Anderson is a 37 year old male who presented with concern for alcohol withdrawal. He was accompanied by friends to the ER. He was reportedly arrested a few days ago due to DUI. He has not had a drink since that time. His friends reported that he has been hallucinating over the past couple days. He reports that he had a seizure. He denies any history of alcohol withdrawal. The ER reports that he drinks many beers and hard liquor drinks daily, but he says he only has a couple drinks of Trey Walker Red Label each day. He denies chest pain. He denies shortness of breath. Subjective/Events-last exam He is awake and alert. He is oriented. He denies pain. He denies nausea. He is not tremulous. Focused Exam Lactate Level 04/28/22 21:31: Lactic Acid Level 1.86 Objective Exam Vital Signs Vital Signs Date Time Temp Pulse Resp B/P (MAP) Pulse Ox O2 Delivery O2 Flow Rate FiO2 04/30/22 13:11 78 04/30/22 13:00 28 99/63 93 Nasal Cannula 2.00 04/30/22 07:40 36.1 Capillary Refill : Less Than 3 Seconds General Appearance: No Apparent Distress, WD/WN HEENT: Scleral Icterus (L), Scleral Icterus (R) Respiratory: Lungs Clear, No Respiratory Distress Cardiovascular: Regular Rate, Rhythm, No Murmur Gastrointestinal: Normal Bowel Sounds, Soft Extremity: Normal Inspection, No Pedal Edema Neurologic/Psychiatric: Alert, Normal Mood/Affect Skin: Warm/Dry, Jaundice Results/Procedures Lab Laboratory Tests 04/30/22 03:45 Patient resulted labs reviewed. Imaging: Reviewed Imaging Report Assessment/Plan Assessment and Plan Assess & Plan/Chief Complaint Alochol dependence with withdrawal Acute alcoholic hepatitis Thrombocytopenia Elevated LFTs Hepatitis C Possible cirrhosis [facility] protocol Ativan Precedex Monitor closely TeleICU following Electrolyte abnormalities Monitor and correct as needed Hypotension Off pressors at this time Possibly low blood pressures secondary to liver disease DVT prophylaxis: Lovenox Critical Care Critically Ill Patient Diagnosis/Problems Diagnosis/Problems (1) Alcohol dependence with withdrawal with perceptual disturbance Status: Acute (2) Thrombocytopenia Status: Acute (3) Elevated LFTs Status: Acute (4) Hepatitis C Status: Chronic Qualifiers: Viral hepatitis chronicity: chronic Hepatic coma status: without hepatic coma Qualified Codes: B18.2 - Chronic viral hepatitis C (5) Electrolyte abnormality Status: Acute (6) Hypotension Status: Acute TOY ANTHONY MD Apr 30, 2022 13:38
[2022-04-30] MEDS: PHENYLEPHRINE DRIP 250 ML IV SCH (14:45)
[2022-04-30] MEDS: ENOXAPARIN 40 MG/0.4 ML (LOVENOX) SYR SQ SCH (16:35)
[2022-04-30] MEDS: cefTRIAXone 1 GM/50 ML (PRE-MIX) IV SCH (21:00)
[2022-05-01 04:24] LABS: BASOPHILS % (AUTO) 1 % (0-10); EOSINOPHILS # (AUTO) 0.1 10^3/uL (0.0-0.3); EOSINOPHILS % (AUTO) 2 % (0-10); HEMOGLOBIN 8.7 g/dL (13.3-17.7)
[2022-05-01 04:26] LABS: HEMATOCRIT 25 % (40-54); LYMPHOCYTES # (AUTO) 1.1 10^3/uL (1.0-4.0); LYMPHOCYTES % (AUTO) 23 % (12-44); MEAN CORPUSCULAR HEMOGLOBIN 34 pg (25-34); MEAN CORPUSCULAR HGB CONC 35 g/dL (32-36); MEAN CORPUSCULAR VOLUME 97 fL (80-99); MEAN PLATELET VOLUME 10.5 fL (9.0-12.2); MONOCYTES # (AUTO) 1.1 10^3/uL (0.0-1.0); MONOCYTES % (AUTO) 24 % (0-12); NEUTROPHILS # (AUTO) 2.3 10^3/uL (1.8-7.8); NEUTROPHILS % (AUTO) 50 % (42-75); PLATELET COUNT 85 10^3/uL (130-400); WHITE BLOOD COUNT 4.6 10^3/uL (4.3-11.0)
[2022-05-01 04:32] LABS: ALBUMIN 2.7 GM/DL (3.2-4.5); CHLORIDE 106 MMOL/L (98-107); POTASSIUM 4.3 MMOL/L (3.6-5.0); SODIUM 135 MMOL/L (135-145)
[2022-05-01 04:34] LABS: CALCIUM 7.7 MG/DL (8.5-10.1)
[2022-05-01 04:35] LABS: GLUCOSE 124 MG/DL (70-105); TOTAL PROTEIN 5.8 GM/DL (6.4-8.2)
[2022-05-01 04:36] LABS: CARBON DIOXIDE 22 MMOL/L (21-32)
[2022-05-01 04:37] LABS: BILIRUBIN,TOTAL 4.6 MG/DL (0.1-1.0)
[2022-05-01 04:38] LABS: ALKALINE PHOSPHATASE 74 U/L (40-136); PHOSPHORUS 1.2 MG/DL (2.3-4.7)
[2022-05-01 04:39] LABS: GFR ESTIMATED 126
[2022-05-01 04:40] LABS: BUN/CREATININE RATIO 3
[2022-05-01 04:42] LABS: ALANINE AMINOTRANSFERASE 42 U/L (0-55); MAGNESIUM 2.1 MG/DL (1.6-2.4)
[2022-05-01] MEDS: KCL 20 MEQ TAB (K-DUR) PO SCH (04:49)
[2022-05-01] MEDS: MAGNESIUM 1 GM/100 ML IVPB 100 ML IV SCH (04:49)
[2022-05-01] MEDS: PHENYLEPHRINE DRIP 250 ML IV SCH (04:49)
[2022-05-01] MEDS: D5 1/2 NS W/KCL 20 MEQ/L 1,000 ML IV SCH ×3 (06:41→23:47)
[2022-05-01] MEDS: THIAMINE INJECTION 100 MG, FOLIC ACID INJECTION 1 MG, MAGNESIUM SULFATE 2 GM, VITAMIN M... IV SCH ×5 (09:30)
[2022-05-01] MEDS: NOREPINEPHRINE 8 MG/250 ML 250 ML IV SCH (10:48)
[2022-05-01] MEDS ORDERED: POTASSIUM PHOSPHATE INJ 30 MM in NS (IVPB) 250 ML IV ONE (13:45)
[2022-05-01 14:30] VITALS: BP 112/72
[2022-05-01 16:18] VITALS: BP 93/52
[2022-05-01] MEDS: ENOXAPARIN 40 MG/0.4 ML (LOVENOX) SYR SQ SCH (16:23)
--- NOTE | 2022-05-01 18:40 | Progress Note - Hospitalist ---
Subjective HPI/CC On Admission Date Seen by Provider: May 01, 2022 Time Seen by Provider: 11:00 Lynn Anderson is a 37 year old male who presented with concern for alcohol withdrawal. He was accompanied by friends to the ER. He was reportedly arrested a few days ago due to DUI. He has not had a drink since that time. His friends reported that he has been hallucinating over the past couple days. He reports that he had a seizure. He denies any history of alcohol withdrawal. The ER reports that he drinks many beers and hard liquor drinks daily, but he says he only has a couple drinks of Trey Walker Red Label each day. He denies chest pain. He denies shortness of breath. Subjective/Events-last exam He is not having any tremors. He denies nausea. He is not having any hallucinations. He is feeling better. Focused Exam Lactate Level 04/28/22 21:31: Lactic Acid Level 1.86 Objective Exam Vital Signs Vital Signs Date Time Temp Pulse Resp B/P (MAP) Pulse Ox O2 Delivery O2 Flow Rate FiO2 05/01/22 16:18 37.2 78 16 93/52 (66) 98 Room Air 04/30/22 23:00 2.00 Capillary Refill : Less Than 3 Seconds General Appearance: No Apparent Distress, WD/WN HEENT: Scleral Icterus (L), Scleral Icterus (R) Respiratory: Lungs Clear, No Respiratory Distress Cardiovascular: Regular Rate, Rhythm, No Murmur Gastrointestinal: Normal Bowel Sounds, Soft Extremity: Normal Inspection, No Pedal Edema Neurologic/Psychiatric: Alert, Motor Weakness Skin: Warm/Dry, Jaundice Results/Procedures Lab Laboratory Tests 05/01/22 04:10 Patient resulted labs reviewed. Imaging: Reviewed Imaging Report Assessment/Plan Assessment and Plan Assess & Plan/Chief Complaint Alochol dependence with withdrawal Acute alcoholic hepatitis Thrombocytopenia Elevated LFTs Hepatitis C Possible cirrhosis [facility] protocol Ativan as needed Off Precedex Social work consulted Anemia Stable Electrolyte abnormalities Monitor and correct as needed DVT prophylaxis: Lovenox Hypotension, resolved Diagnosis/Problems Diagnosis/Problems (1) Alcohol dependence with withdrawal with perceptual disturbance Status: Acute (2) Thrombocytopenia Status: Acute (3) Elevated LFTs Status: Acute (4) Hepatitis C Status: Chronic Qualifiers: Viral hepatitis chronicity: chronic Hepatic coma status: without hepatic coma Qualified Codes: B18.2 - Chronic viral hepatitis C (5) Electrolyte abnormality Status: Acute (6) Hypotension Status: Acute TOY ANTHONY MD May 01, 2022 18:39
[2022-05-01 20:22] VITALS: BP 90/56
[2022-05-01 20:34] VITALS: BP 102/62
[2022-05-01 23:03] VITALS: BP 100/58
[2022-05-02 03:24] VITALS: BP 104/64
[2022-05-02 04:27] LABS: HEMOGLOBIN 8.8 g/dL (13.3-17.7); MEAN CORPUSCULAR VOLUME 97 fL (80-99)
[2022-05-02 04:29] LABS: BASOPHILS % (AUTO) 1 % (0-10); EOSINOPHILS # (AUTO) 0.1 10^3/uL (0.0-0.3); EOSINOPHILS % (AUTO) 3 % (0-10); HEMATOCRIT 26 % (40-54); LYMPHOCYTES # (AUTO) 0.9 10^3/uL (1.0-4.0); LYMPHOCYTES % (AUTO) 26 % (12-44); MEAN CORPUSCULAR HEMOGLOBIN 34 pg (25-34); MEAN CORPUSCULAR HGB CONC 34 g/dL (32-36); MONOCYTES # (AUTO) 0.9 10^3/uL (0.0-1.0); MONOCYTES % (AUTO) 26 % (0-12); NEUTROPHILS # (AUTO) 1.6 10^3/uL (1.8-7.8); NEUTROPHILS % (AUTO) 44 % (42-75); PLATELET COUNT 115 10^3/uL (130-400); WHITE BLOOD COUNT 3.6 10^3/uL (4.3-11.0)
[2022-05-02 04:43] LABS: ALBUMIN 2.7 GM/DL (3.2-4.5); CHLORIDE 108 MMOL/L (98-107); POTASSIUM 4.4 MMOL/L (3.6-5.0); SODIUM 138 MMOL/L (135-145)
[2022-05-02 04:44] LABS: CALCIUM 7.9 MG/DL (8.5-10.1)
[2022-05-02 04:45] LABS: GLUCOSE 138 MG/DL (70-105); TOTAL PROTEIN 5.9 GM/DL (6.4-8.2)
[2022-05-02 04:46] LABS: CARBON DIOXIDE 20 MMOL/L (21-32)
[2022-05-02 04:47] LABS: BILIRUBIN,TOTAL 5.7 MG/DL (0.1-1.0)
[2022-05-02 04:48] LABS: PHOSPHORUS 2.3 MG/DL (2.3-4.7)
[2022-05-02 04:49] LABS: ALKALINE PHOSPHATASE 79 U/L (40-136); CREATININE SERUM 0.64 MG/DL (0.60-1.30); GFR ESTIMATED 123
[2022-05-02 04:50] LABS: BUN/CREATININE RATIO 3
[2022-05-02 04:52] LABS: ALANINE AMINOTRANSFERASE 42 U/L (0-55)
[2022-05-02] MEDS: POTASSIUM CL 10MEQ/50ML IVPB 50 ML IV SCH (05:02)
[2022-05-02] MEDS: MAGNESIUM 1 GM/100 ML IVPB 100 ML IV SCH (05:03)
[2022-05-02] MEDS: KCL 20 MEQ TAB (K-DUR) PO SCH (05:03)
[2022-05-02] MEDS: D5 1/2 NS W/KCL 20 MEQ/L 1,000 ML IV SCH ×2 (06:15→08:57)
[2022-05-02 08:00] VITALS: BP 103/71
--- NOTE | 2022-05-02 10:57 | Discharge Summary ---
Diagnosis/Chief Complaint Date of Admission Apr 28, 2022 at 21:48 Date of Discharge Admission Diagnosis Alochol dependence with withdrawal Primary Care VasuEren Alondra DO Discharge Diagnosis (1) Alcohol dependence with withdrawal with perceptual disturbance Status: Acute (2) Thrombocytopenia Status: Acute (3) Elevated LFTs Status: Acute (4) Hepatitis C Status: Chronic (5) Electrolyte abnormality Status: Acute (6) Hypotension Status: Acute Discharge Summary Discharge Physical Exam Allergies: Coded Allergies: No Known Drug Allergies (Unverified , 05/15/20) Vitals & I&Os Vital Signs Date Time Temp Pulse Resp B/P (MAP) Pulse Ox O2 Delivery O2 Flow Rate FiO2 05/02/22 08:00 36.9 88 16 103/71 (82) 100 Room Air 04/30/22 23:00 2.00 Hospital Course Labs (last 24 hrs) Laboratory Tests 05/02/22 04:18: White Blood Count 3.6L, Red Blood Count 2.63L, Hemoglobin 8.8L, Hematocrit 26L, Mean Corpuscular Volume 97, Mean Corpuscular Hemoglobin 34, Mean Corpuscular Hemoglobin Concent 34, Red Cell Distribution Width 15.5H, Platelet Count 115L, Mean Platelet Volume 10.0, Immature Granulocyte % (Auto) 0, Neutrophils (%) (Auto) 44, Lymphocytes (%) (Auto) 26, Monocytes (%) (Auto) 26H, Eosinophils (%) (Auto) 3, Basophils (%) (Auto) 1, Neutrophils # (Auto) 1.6L, Lymphocytes # (Auto) 0.9L, Monocytes # (Auto) 0.9, Eosinophils # (Auto) 0.1, Basophils # (Auto) 0.0, Immature Granulocyte # (Auto) 0.0, Percent Immature Platelet Fraction 3.1, Sodium Level 138, Potassium Level 4.4, Chloride Level 108H, Carbon Dioxide Level 20L, Anion Gap 10, Blood Urea Nitrogen < 2L, Creatinine 0.64, Estimat Glomerular Filtration Rate 123, BUN/Creatinine Ratio 3, Glucose Level 138H, Calcium Level 7.9L, Corrected Calcium 8.9, Phosphorus Level 2.3, Magnesium Level 2.0, Total Bilirubin 5.7H, Aspartate Amino Transf (AST/SGOT) 140H, Alanine Aminotransferase (ALT/SGPT) 42, Alkaline Phosphatase 79, Total Protein 5.9L, Al bumin 2.7L Microbiology 04/28/22 MRSA Screen - Final, Complete MRSA not isolated 04/28/22 Blood Culture - Preliminary, Resulted Staph, Coag Neg ([employer]) 04/28/22 Urine Culture - Final, Complete NO GROWTH Patient resulted labs reviewed. Pending Labs Laboratory Tests 05/02/22 04:18: White Blood Count 3.6, Red Blood Count 2.63, Hemoglobin 8.8, Hematocrit 26, Mean Corpuscular Volume 97, Mean Corpuscular Hemoglobin 34, Mean Corpuscular Hemoglobin Concent 34, Red Cell Distribution Width 15.5, Platelet Count 115, Mean Platelet Volume 10.0, Immature Granulocyte % (Auto) 0, Neutrophils (%) (Auto) 44, Lymphocytes (%) (Auto) 26, Monocytes (%) (Auto) 26, Eosinophils (%) (Auto) 3, Basophils (%) (Auto) 1, Neutrophils # (Auto) 1.6, Lymphocytes # (Auto) 0.9, Monocytes # (Auto) 0.9, Eosinophils # (Auto) 0.1, Basophils # (Auto) 0.0, Immature Granulocyte # (Auto) 0.0, Percent Immature Platelet Fraction 3.1, Sodium Level 138, Potassium Level 4.4, Chloride Level 108, Carbon Dioxide Level 20, Anion Gap 10, Blood Urea Nitrogen < 2, Creatinine 0.64, Estimat Glomerular Filtration Rate 123, BUN/Creatinine Ratio 3, Glucose Level 138, Calcium Level 7.9, Corrected Calcium 8.9, Phosphorus Level 2.3, Magnesium Level 2.0, Total Bilirubin 5.7, Aspartate Amino Transf (AST/SGOT) 140, Alanine Aminotransferase (ALT/SGPT) 42, Alkaline Phosphatase 79, Total Protein 5.9, Albumin 2.7 Imaging: Reviewed Imaging Report Discharge Home Medications: Active Scripts Active No Active Prescriptions or Reported Medications Instructions to patient/family Please see electronic discharge instructions given to patient. Problem Qualifiers (1) Hepatitis C: Viral hepatitis chronicity: chronic Hepatic coma status: without hepatic coma Qualified Codes: B18.2 - Chronic viral hepatitis C MARCELO MEDRANO MD May 02, 2022 10:57
--- NOTE | 2022-05-02 10:58 | Discharge Inst-Simple/Standard ---
Discharge Inst-Standard Discharge Medications New, Converted or Re-Newed RX: Transmitted to Pharmacy Patient Instructions/Follow Up Plan of Care/Instructions/FU: Please continue to take your medications as written. Please follow up with your primary care doctor to follow up this hospital stay. Activity as Tolerated: Yes Discharge Diet: No Restrictions Return to The Hospital For: Chest pain, shortness of breath, fever, weakness, if you feel you are getting worse. MARCELO MEDRANO MD May 02, 2022 10:58
[2022-05-02 11:30] VITALS: BP 103/71
--- NOTE | 2022-05-02 11:34 | Physical Therapy Evaluation ---
PT Evaluation-General Medical Diagnosis Admission Date Apr 28, 2022 at 21:48 Medical Diagnosis: alcohol withdrawal/UTI Onset Date: Apr 28, 2022 Therapy Diagnosis Therapy Diagnosis: debility/weakness Precautions Precautions/Isolations: Seizure, Fall Prevention Weight Bear Status Right Lower Extremity: Right Weight Bearing/Tolerated Left Lower Extremity: Left Weight Bearing/Tolerated Referral Physician: Tyler Reason for Referral: Evaluation/Treatment Medical History Pertinent Medical History: Alcoholism Additional Medical History Hep C Current History multiple seizures due to alcohol withdrawal (last drink 04/25/22 per report) Reviewed History: Yes Social History Home: Apartment Current Living Status: Alone Prior Prior Level of Function SCALE: Activities may be completed with or without assistive devices. 8-[id number] completes the activity by him/herself with no assistance from a helper. 5-Set-up or Clean-up Assistance-helper sets up or cleans up; patient completes activity. [place] assists only prior to or following the activity. 4-Supervision or Touching Assistance-helper provides verbal cues and/or touching/steadying and/or contact guard assistance as patient completes activity. Assistance may be provided throughout the activity or intermittently. 3-Partial/Moderate Assistance-helper does LESS THAN HALF the effort. Phenix lifts, holds or supports trunk or limbs, but provides less than half the effort. 2-Substantial/Maximal Assistance-helper does MORE THAN HALF the effort. Phenix lifts or holds trunk or limbs and provides more than half the effort. 7-Monwkzdny-jzdido does ALL the effort. Patient does none of the effort to complete the activity. Or, the assistance of 2 or more helpers is required for the patient to complete the activity. If activity was not attempted, code reason: 7-Patient Refused. 9-Not Applicable-not attempted and the patient did not perform the activity before the current illness, exacerbation or injury. 10-Not Attempted due to Environmental Limitations-(lack of equipment, weather restraints, etc.). 88-Not Attempted due to Medical Conditions or Safety Concerns. Bed Mobility: 6 Transfers (B,C,W/C): 6 Gait: 6 Stairs: 6 Indoor Mobility (Ambulation): Independent Stairs: Independent Prior Devices Use: None PT Evaluation-Current Subjective Patient agrees to PT. Objective Patient Orientation: Normal For Age Attachments: IV ROM/Strength ROM Lower Extremities bilateral LE WFL Strength Lower Extremities 4/5 grossly bilateral LE Integumentary/Posture Bowel Incontinence: No Bladder Incontinence: No Posture WFL Neuromuscular (Tone, Coordination, Reflexes) grossly intact Sensory Vision: Functional Hearing: Functional Transfers Lying to Sitting/Side of Bed(Q: 6 Sit to Stand (QC): 4 Chair/Xmu-wr-Qyuhi Xfer(QC): 4 Gait Does the Patient Walk?: Yes Mode of Locomotion: Walk Anticipated Mode of Locomotion: Walk Walk 10 feet (QC): 4 Walk 50 ft with 2 Turns(QC): 4 Walk 150 ft (QC): 4 Distance: 300' Gait Assistive Device: FWW Comments/Gait Description safe and functional with FWW use Balance Sitting Static: Normal Sitting Dynamic: Normal Standing Static: Fair Standing Dynamic: Fair Assessment/Needs 37 y.o. male, up in recliner with chair alarm activated and telesitter present. Patient declined PT intervention continuation and states he is going home today. RN notified. Rehab Potential: Fair PT Plan Treatment/Plan Treatment Plan: Discontinue PT Treatment Duration: May 02, 2022 Frequency: 1 time per week Estimated Hrs Per Day: .25 hour per day Time/GCodes Time In: 1032 Time Out: 1043 Total Billed Treatment Time: 11 [facility] ZENOBIA ALNE PT May 02, 2022 11:34
[2022-05-02 11:49] VITALS: BP 111/69
== END 2022-05-02 11:30 | disposition home or self-care (01) | DRG 897 ==
LOC: EDUNIT# 18:43 → ER 18:46 → ICU 21:48 → 4TH 05-01 14:20
PROVIDERS: ADMIT Internal Medicine; ATTEND Family Medicine
DX: F10.239 Alcohol dependence with withdrawal, unspecified (principal); R44.3 Hallucinations, unspecified; N39.0 Urinary tract infection, site not specified; D68.9 Coagulation defect, unspecified; G40.909 Epilepsy, unspecified, not intractable, without status epilepticus; E83.42 Hypomagnesemia; E87.6 Hypokalemia; K70.10 Alcoholic hepatitis without ascites; D69.6 Thrombocytopenia, unspecified; B19.20 Unspecified viral hepatitis C without hepatic coma; I95.9 Hypotension, unspecified; K70.30 Alcoholic cirrhosis of liver without ascites; D64.9 Anemia, unspecified
CPT/HCPCS: 36415; 36569; 70450; 71045; 76937; 80053; 80306; 80320; 81000; 82140; 83605; 83690; 83735; 84100; 84145; 84443; 85007; 85025; 85027; 85045; 85610; 86141; 86850; 86900; 86901; 87040; 87081; 87088; 93306; 94760